=== PATIENT | female | born 1950 | race Caucasian/White ===

== ENCOUNTER → 2025-03-22 14:07 | Outpatient (REF) | payer MEDICARE, OTHER, SELFPAY | LOC: RAD 14:07 | PROVIDERS: ATTENDING PHYSICIAN Internal Medicine Hematology & Oncology; FAMILY PHYSICIAN Family Medicine | DX: I82.592 Chronic embolism and thrombosis of other specified deep vein of left lower extremity (principal); R53.83 Other fatigue; R79.89 Other specified abnormal findings of blood chemistry | CPT/HCPCS: 71260; 74177; Q9967 ==

== ENCOUNTER → 2025-04-08 10:23 | Outpatient (REF) | payer MEDICARE, OTHER, SELFPAY ==
[2025-04-08 12:15] LABS: INR 1.69; PT 20.1 Sec (11.4-14.6)
== END ==
LOC: RCS 10:23
PROVIDERS: ATTENDING PHYSICIAN Internal Medicine; FAMILY PHYSICIAN Family Medicine; OTHER PHYSICIAN Internal Medicine Hematology & Oncology
DX: I27.20 Pulmonary hypertension, unspecified (principal); I82.592 Chronic embolism and thrombosis of other specified deep vein of left lower extremity; R53.83 Other fatigue; R79.89 Other specified abnormal findings of blood chemistry; D64.9 Anemia, unspecified; D51.9 Vitamin B12 deficiency anemia, unspecified
CPT/HCPCS: 36415; 85610; 93306

== ENCOUNTER 2025-04-11 06:15 | Day surgery (SDC) | payer MEDICARE, OTHER, SELFPAY ==
[2025-04-11] VITALS (8 sets, daily range): BP systolic 84–160; BP diastolic 41–67; BMI 31.7
[2025-04-11] MEDS: VENTOLIN NEBULES 2.5 MG INH (13:03)
[2025-04-11] MEDS: NSS 500 IV (13:16)
== END 2025-04-11 16:28 | disposition home or self-care (01) ==
LOC: SDS 06:15
PROVIDERS: ATTENDING PHYSICIAN Internal Medicine Critical Care Medicine
DX: R91.8 Other nonspecific abnormal finding of lung field (principal); C34.11 Malignant neoplasm of upper lobe, right bronchus or lung
CPT/HCPCS: 31625; 31623; 31624; 31654; 71045; 76000; 81459; 88112; 88305; 88333; 88334; 88341; 88342; 94640

== ENCOUNTER → 2025-04-26 20:10 | Outpatient (REF) | payer MEDICARE, OTHER, SELFPAY | LOC: MRI 20:10 | PROVIDERS: ATTENDING PHYSICIAN Internal Medicine Hematology & Oncology; FAMILY PHYSICIAN Family Medicine | DX: I82.592 Chronic embolism and thrombosis of other specified deep vein of left lower extremity (principal); R53.83 Other fatigue; R79.89 Other specified abnormal findings of blood chemistry; D64.9 Anemia, unspecified; D51.9 Vitamin B12 deficiency anemia, unspecified | CPT/HCPCS: 70553; A9575 ==

== ENCOUNTER → 2025-05-06 11:03 | Outpatient (REF) | payer MEDICARE, OTHER, SELFPAY ==
[2025-05-06 11:23] LABS: Glucose 84 mg/dl (70-99)
== END ==
LOC: PET 11:03
PROVIDERS: ATTENDING PHYSICIAN Internal Medicine Hematology & Oncology
DX: C34.11 Malignant neoplasm of upper lobe, right bronchus or lung (principal); R53.83 Other fatigue; R79.89 Other specified abnormal findings of blood chemistry; D64.9 Anemia, unspecified; D51.9 Vitamin B12 deficiency anemia, unspecified; R91.8 Other nonspecific abnormal finding of lung field; I82.592 Chronic embolism and thrombosis of other specified deep vein of left lower extremity
CPT/HCPCS: 36415; 82947

== ENCOUNTER → 2025-05-23 08:22 | Outpatient (REF) | payer MEDICARE, OTHER, SELFPAY ==
[2025-05-23 08:45] VITALS: BP 149/66; BP_SYST 78; BMI 31.1
[2025-05-23] MEDS: ANCEF 10 IV (09:32)
[2025-05-23 09:37] LABS: INR 1.74; PT 20.5 Sec (11.4-14.6)
[2025-05-23 10:40] VITALS: BP 130/57; BP_SYST 71
[2025-05-23 10:55] VITALS: BP 106/71; BP_SYST 72
== END ==
LOC: RADI 08:22
PROVIDERS: Radiology Diagnostic Radiology; ATTENDING PHYSICIAN Internal Medicine Hematology & Oncology; FAMILY PHYSICIAN Family Medicine
DX: C34.11 Malignant neoplasm of upper lobe, right bronchus or lung (principal)
CPT/HCPCS: 36561; 76937; 77001; 85610; 99152; C1788

== ENCOUNTER → 2025-05-26 12:45 | Outpatient (REF) | payer MEDICARE, OTHER, SELFPAY ==
[2025-05-26 14:52] LABS: Blood Urea Nitrogen 42 mg/dl (7-17)
== END ==
LOC: REG 12:45
PROVIDERS: ATTENDING PHYSICIAN Radiology Radiation Oncology; FAMILY PHYSICIAN Family Medicine
DX: C34.11 Malignant neoplasm of upper lobe, right bronchus or lung (principal)
CPT/HCPCS: 36415; 82565; 84520

== ENCOUNTER → 2025-06-15 12:02 | Outpatient (REF) | payer MEDICARE, OTHER, SELFPAY | LOC: HWRCS 12:02 | PROVIDERS: ATTENDING PHYSICIAN Internal Medicine; FAMILY PHYSICIAN Family Medicine | DX: I10 Essential (primary) hypertension (principal); I26.99 Other pulmonary embolism without acute cor pulmonale; C34.90 Malignant neoplasm of unspecified part of unspecified bronchus or lung; R94.31 Abnormal electrocardiogram [ECG] [EKG]; I73.9 Peripheral vascular disease, unspecified; R00.2 Palpitations; I95.81 Postprocedural hypotension | CPT/HCPCS: 78452; 93017; A9500; J2785 ==

== ENCOUNTER 2025-07-23 16:47 | Inpatient (IN) | payer MEDICARE, OTHER, SELFPAY ==
[2025-07-23] VITALS (15 sets, daily range): BP systolic 96–151; BP diastolic 47–117; PULSE 71–120; BMI 27.4; BMI 28.0
--- NOTE | 2025-07-23 12:23 | ED.GENMED ---
History of Present Illness
<Shabnam Parra PA-C - Last Filed: 07/23/25 15:34>
General
Chief Complaint: Breathing Problem
Source: patient
Exam Limitations: none
Time Seen by Provider: 07/23/25 12:04
History of Present Illness
History of Present Illness:
75yoF with a history of lung cancer on chemotherapy, prior DVT/PE on Coumadin, and hypertension presenting for evaluation of fatigue. Patient finished her second round of chemotherapy 2 weeks ago. Symptoms started about 1 week ago. She reports
generalized weakness, malaise, and fatigue. She states she is unable to walk more than 10 feet without feeling very weak. She is also experiencing some upper abdominal cramping and is not eating much due to her abdominal pain. She has lost about
12 pounds in the past month. Additionally, she is having upper back pain and lightheadedness. She had a UTI several months ago and her urine odor has been very strong so she believes she has another UTI. Her INR was checked 3 days ago and was
elevated at 4.3 so she has not taken her Coumadin in the past few days. She denies any shortness of breath, pleuritic pain, chest pain, nausea, vomiting, diarrhea, hematochezia, melena, fevers. She follows with Dr. Whyte and next chemotherapy is
scheduled for 6 days from now.
Past History
<Shabnam Parra PA-C - Last Filed: 07/23/25 15:34>
Past History
ED Past Medical History: Other (DVT, hypertension)
Social History
Tobacco: Former smoker
Phy Exam
<Shabnam Parra PA-C - Last Filed: 07/23/25 15:34>
General Physical Exam
General Presentation: well appearing and no apparent distress
General Skin: warm and dry
General Habitus: normal
General Mental: alert
ENT Exam
ENT Exam: pharynx normal and normocephalic
Cardiovascular Exam
Cardiovascular Exam: regular rate/rhythm
Pulmonary Exam
Pulmonary Exam: lungs clear, no respiratory distress, no rales, no crackles, no rhonchi and no wheezing
Gastrointestinal Exam
Gastrointestinal Exam: non tender, soft, non distended and other (Umbilical hernia palpated that is non-tender without skin changes.)
Neurological Exam
Neurological Exam: alert
[place] Coma Scale
Eye Opening: Spontaneous
Verbal Response: Oriented
Motor Response: Obeys Commands
GCS Total Score: 15
Skin Exam
Skin Exam: normal color and warm/dry
Psychiatric Exam
Psychiatric Exam: normal mood/affect
<Lotus Ochoa MD - Last Filed: 07/23/25 14:33>
Lisa Coma Scale
GCS Total Score: 15
Scores
<Shabnam Parra PA-C - Last Filed: 07/23/25 15:34>
Heart Failure Risk
Heart Failure Risk Score: Not Applicable
Course
<Shabnam Parra PA-C - Last Filed: 07/23/25 15:34>
Orders/Labs/Results
Orders:
Orders
07/23/25 12:22
Electrocardiogram (*1) Urgent
Reason for Study: Fatigue / Weakness
EKG- Treatment ONCE
07/23/25 12:23
Cardiac Monitoring- Treatment ONCE
07/23/25 12:40
Complete Blood Count/With Diff Urgent
Comprehensive Metabolic Panel Urgent
Lipase Urgent
Prothrombin Time Urgent
TSH Reflex To Free T4 Urgent
Troponin I Urgent
Urine Culture Urgent
ANNY Source: U
Specimen Description:
Date Specimen was Collected: 07/23/25
Time Specimen was Collected: 12:30
07/23/25 13:26
CT Abd/pel Without Iv Or Oral Urgent
Comment:
Reason For Exam: upper abd pain
0.9% Sodium Chloride 500 ml [Nss] 500 ml IV BOLUS
07/23/25 13:33
Osmolality, Random Urine Urgent
Urine Sodium Urgent
07/23/25 14:43
Urinalysis Reflex To Culture Urgent
Date Specimen was Collected: 07/23/25
Time Specimen was Collected: 13:57
Urine Microscopic Reflex Cult Urgent
Urine Culture Urgent
ANNY Source: U
Specimen Description:
Date Specimen was Collected: 07/23/25
Time Specimen was Collected: 13:57
07/23/25 14:50
Warfarin [Coumadin] 5 mg PO NOW STA
07/23/25 14:54
Add On- LAB Routine
Tests Added?: serum osmolality
07/23/25 15:01
Add On- LAB Urgent
Tests Added?: urine chloride
Abnormal Lab Results
07/23/25 07/23/25
12:40 14:43
WBC 3.8 L 10^3/uL
(4.8-10.8)
RBC 3.24 L 10^6/uL
(4.20-5.40)
Hgb 9.1 L g/dL
(12.0-16.0)
Hct 26.9 L %
(37.0-47.0)
RDW 16.0 H %
(11.5-14.5)
Absolute Lymphs (auto) 0.6 L 10^3/uL
(1.2-3.4)
Absolute Monos (auto) 0.7 H 10^3/uL
(0.1-0.6)
Lymphocytes % 15.6 L %
(20.5-51.1)
Monocytes % 17.2 H %
(1.7-9.3)
PT 19.8 H Sec
(11.4-14.6)
Sodium 125 L mmol/L
(135-145)
Chloride 93 L mmol/L
(98-107)
BUN 31 H mg/dl
(7-17)
Creatinine 1.7 H mg/dL
(0.6-1.0)
Ur Occult Blood Reflex 2+ A
(Negative)
Urine Nitrite (Reflex) Positive A
(Negative)
Leukocyte Esterase Rfl 3+ A
(Negative)
Urine Albumin (Reflex) 2+ A
(Neg - Trace)
07/23/25 12:40
07/23/25 12:40
Vital Signs
Initial and Last Documented VS:
Initial Vital Signs
Temp Pulse Resp BP Pulse Ox
97.9 F 90 16 106/54 97
07/23/25 11:44 07/23/25 11:44 07/23/25 11:44 07/23/25 11:44 07/23/25 11:44
Last Documented Vital Signs
Temp Pulse Resp BP Pulse Ox
98.6 F 71 13 96/63 99
07/23/25 12:43 07/23/25 13:00 07/23/25 13:00 07/23/25 13:00 07/23/25 13:00
<Lotus Ochoa MD - Last Filed: 07/23/25 14:33>
Orders/Labs/Results
Orders:
Orders
07/23/25 12:22
Electrocardiogram (*1) Urgent
Reason for Study: Fatigue / Weakness
EKG- Treatment ONCE
07/23/25 12:23
Cardiac Monitoring- Treatment ONCE
07/23/25 12:40
Complete Blood Count/With Diff Urgent
Comprehensive Metabolic Panel Urgent
Lipase Urgent
Prothrombin Time Urgent
TSH Reflex To Free T4 Urgent
Troponin I Urgent
Urine Culture Urgent
ANNY Source: U
Specimen Description:
Date Specimen was Collected: 07/23/25
Time Specimen was Collected: 12:30
07/23/25 13:26
CT Abd/pel Without Iv Or Oral Urgent
Comment:
Reason For Exam: upper abd pain
0.9% Sodium Chloride 500 ml [Nss] 500 ml IV BOLUS
07/23/25 13:33
Osmolality, Random Urine Urgent
Urine Sodium Urgent
07/23/25 14:43
Urinalysis Reflex To Culture Urgent
Date Specimen was Collected: 07/23/25
Time Specimen was Collected: 13:57
Urine Microscopic Reflex Cult Urgent
Urine Culture Urgent
ANNY Source: U
Specimen Description:
Date Specimen was Collected: 07/23/25
Time Specimen was Collected: 13:57
07/23/25 14:50
Warfarin [Coumadin] 5 mg PO NOW STA
07/23/25 14:54
Add On- LAB Routine
Tests Added?: serum osmolality
07/23/25 15:01
Add On- LAB Urgent
Tests Added?: urine chloride
Abnormal Lab Results
07/23/25 07/23/25
12:40 14:43
WBC 3.8 L 10^3/uL
(4.8-10.8)
RBC 3.24 L 10^6/uL
(4.20-5.40)
Hgb 9.1 L g/dL
(12.0-16.0)
Hct 26.9 L %
(37.0-47.0)
RDW 16.0 H %
(11.5-14.5)
Absolute Lymphs (auto) 0.6 L 10^3/uL
(1.2-3.4)
Absolute Monos (auto) 0.7 H 10^3/uL
(0.1-0.6)
Lymphocytes % 15.6 L %
(20.5-51.1)
Monocytes % 17.2 H %
(1.7-9.3)
PT 19.8 H Sec
(11.4-14.6)
Sodium 125 L mmol/L
(135-145)
Chloride 93 L mmol/L
(98-107)
BUN 31 H mg/dl
(7-17)
Creatinine 1.7 H mg/dL
(0.6-1.0)
Ur Occult Blood Reflex 2+ A
(Negative)
Urine Nitrite (Reflex) Positive A
(Negative)
Leukocyte Esterase Rfl 3+ A
(Negative)
Urine Albumin (Reflex) 2+ A
(Neg - Trace)
07/23/25 12:40
07/23/25 12:40
Vital Signs
Initial and Last Documented VS:
Initial Vital Signs
Temp Pulse Resp BP Pulse Ox
97.9 F 90 16 106/54 97
07/23/25 11:44 07/23/25 11:44 07/23/25 11:44 07/23/25 11:44 07/23/25 11:44
Last Documented Vital Signs
Temp Pulse Resp BP Pulse Ox
98.6 F 71 13 96/63 99
07/23/25 12:43 07/23/25 13:00 07/23/25 13:00 07/23/25 13:00 07/23/25 13:00
Dashalt;Shabnam Parra PA-C - Last Filed: 07/23/25 15:34>
MDM/Problems Addressed
Differential Diagnosis Includes:
75yoF presenting with generalized weakness x 1 week. Also c/o upper abdominal pain that worsens after eating and mid back pain. Hx of lung cancer with last chemo treatment 2 weeks ago. VSS. Patient non-toxic appearing. Differential diagnosis
includes but is not limited to: weakness related to chemotherapy/underlying malignancy, symptomatic anemia, metastatic disease, PUD
Initial ED plan: Check cardiac labs, lipase, TSH, UA, EKG, and CT abdomen.
<Shabnam Parra PA-C - Last Filed: 07/23/25 15:34>
*Pulse Oximetry
SaO2: 97
Oxygen Mode of Delivery: Room air
Patient hypoxic: no
*EKG
Interpreted by ED Provider?: Yes
EKG Intrepretation Date: 07/23/25
Heart Rate: 75
Rate: normal
Rhythm: sinus
[place]: normal axis
Interval: normal interval
QRS Pattern: normal QRS
Ischemia: no ischemia
*Critical Care Note
Total Time (30-74mins, 75-104mins- exclusive of procedures): Not Applicable
<Shabnam Parra PA-C - Last Filed: 07/23/25 15:34>
Update Note
Update Note:
Hemoglobin 9.1. Patient able to show me her recent outpatient lab work results on her phone. Hemoglobin also 9.1 on 07/05/25. Sodium is 125 which appears new. Creatinine 1.7, up slightly from 1.46 on 07/08/15. CT shows findigns suggesting
interstitial pancreatitis although lipase levels WNL. Urine studies ordered as well as 500cc NS bolus. Patient admitted for further management.
ED Attending Note
<Shabnam Parra PA-C - Last Filed: 07/23/25 15:34>
-
Portions of this chart may have been created with voice recognition software.� Occasional wrong word or��sound alike� substitutions may have occurred due to the inherent limitations of voice recognition software.
<Lotus Ochoa MD - Last Filed: 07/23/25 14:33>
ED Attending Note
Patient seen and examined by attending physician: Yes
I performed the substantive portion of visit, reviewed & personally made and approve the management plan that is documented in note by myself or HIREN.: Yes
ED Attending Note:
Patient appears nontoxic. Breathing comfortably. Appears slightly pale. Abdomen is soft without rebound or guarding.
Discharge Plan
Departure
Patient Disposition: Admit
Date of Disposition: 07/23/25
Time of Disposition: 14:12
Presentation/result/management discussed w/ accepting MD/DO: Hospitalist
Discharge Problem:
Generalized weakness, Hyponatremia
Prescriptions:
No Action
cholecalciferol (vitamin D3) 1,000 UNIT capsule
1,000 unit PO QPM
lisinopril 20 mg Tablet
20 mg PO DAILY
warfarin 5 mg Tablet
5 mg PO DIRECTED
Rx Instructions:
take 5mg friday and 2.5mg friday at night hold and friday
albuterol sulfate 90 mcg/actuation Hfa Aerosol Inhaler
2 puff INHALATION R Q6HPRN PRN (Reason: sob)
Theragen Tablet
1 tab PO DAILY
Referrals:
UNKNOWN - PT NOT,INTERVIEWE [Family Provider]
Interventions
Interventions:
*Risk Screen - Suicide Last Done: 07/23/25 12:43
*General Assessment Last Done: 07/23/25 12:43
*Neglect/Abuse Screening Last Done: 07/23/25 12:43
*ED COVID-19 Vaccine History Last Done: 07/23/25 12:43
*ED Influenza Vaccine History Last Done: 07/23/25 12:43
[facility] Fall Risk Assessment Tool Last Done: 07/23/25 12:43
ED- Cardiac Assessment Last Done: 07/23/25 12:43
ED- Pulmonary Assessment Last Done: 07/23/25 12:43
Discharge Date and Time
Print Language: BELARUSIAN
[2025-07-23 12:57] LABS: Hematocrit 26.9 % (37.0-47.0); Hemoglobin 9.1 g/dL (12.0-16.0); Mean Corp Hgb Conc. 33.8 g/dL (33.0-37.0); Mean Corpuscular Volume 83.0 fL (81.0-99.0); Nucleated Red Blood Cells % 0 %; Platelet Count 157 10^3/uL (130-400); Red Cell Dist. Width 16.0 % (11.5-14.5)
[2025-07-23 13:03] LABS: INR 1.67; PT 19.8 Sec (11.4-14.6)
[2025-07-23 13:21] LABS: ALT (SGPT) 15 U/L (0-35); AST (SGOT) 22 U/L (14-36); Albumin 3.8 g/dl (3.5-5.0); Alkaline Phosphatase 97 U/L (38-126); Blood Urea Nitrogen 31 mg/dl (7-17); Calcium 10.1 mg/dl (8.4-10.2); Carbon Dioxide 26 mmol/L (22-30); Chloride 93 mmol/L (98-107); Estimated Creatinine Clearance 27 ml/min; Glucose 98 mg/dl (70-99); Lipase 166 U/L (23-300); Potassium 5.0 mmol/L (3.5-5.1); Sodium 125 mmol/L (135-145); Total Protein 6.8 g/dl (6.3-8.2); eGFR 30.70
[2025-07-23 13:32] LABS: Troponin I 0.017 ng/ml
[2025-07-23] MEDS: NSS 500 IV (14:17)
[2025-07-23 15:16] LABS: Urine Character Cloudy (Clear)
[2025-07-23 16:00] LABS: Urine White Cell >100 /HPF (0-5)
[2025-07-23] MEDS: COUMADIN 5 MG PO (16:15)
--- NOTE | 2025-07-23 16:33 | CM ---
Chart reviewed and spoke with patient at ED bedside
She is currently on chemo treatment for lung cancer. [facility] oncologist Dr. Trujillo told her ot come to ED today
Lives in [address] with 4 [address]
DME cane
Independent
Per patient Davy is not very supportive but her son Rico who lives a mile away is supportive
Rico phone number [phone]
Has a good friend Chivo who provides transportation if needed
PCP Dr. Sherley Platt
Pharmacy [facility]
no hx of VN nor SNF
DCP is to return home
next chemo is on 07/29
Family/friend can provide transportation at [place]
CM will continue to follow up for any dcp needs
--- NOTE | 2025-07-23 17:43 | HPS.HSE ---
Addendum entered and electronically signed by Radha Morales MD 07/23/25 19:35:
I personally performed a history and physical exam of the patient and discussed management with the resident. I reviewed the resident's note and agree with the documented findings and plan of care HPI/CC.
GENERAL: well developed, well nourished, female in no apparent distress
HEENT: NT/AC--no O2 requirements
HEART: regular rate and rhythm, +S1, +S2
LUNGS : clear to auscultation bilaterally
ABDOM: soft, nontender, nondistended, + bowel sounds
EXT: no cyanosis, clubbing-- 2+ edema bilateral LE--wearing compression stockings
NEUROLOGIC: grossly intact
Symptomatic hypovolemic hyponatremia exacerbated by polydipsia (pt drinking large water volumes to 'keep hydrated') along with poor oral intake from chemo--cont NSS and trend sodium--if no improvement, consult renal- Veronica 55, Urine Osm 390--fluid
restrict
UTI-- asymptomatic, uncomplicated--UA positive, culture pending--adding rocephin
Abdominal pain/nausea--Mild edema/peripancreatic inflammatory changes of the pancreatic head--do not believe pancreatitis with normal lipase--antiemetics
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 Whyte- Outpatient PT/INR elevated at 4.3, Coumadin held for several days prior to admission- INR on admission 1.67- Given x1 dose 5mg Warfarin this evening-- tend INR and dose warfarin
daily for now
SCC of the lung, stage IIIa--Follows with Dr. Whyte at [place] -- current chemo regimen includes Keytruda, Carboplatin, Taxol [id number] x4 cycles--consult heme
CKD stage IIIa--Baseline creatinine, creatinine May 2025 1.6- Creatinine admission 1.7, potential baseline, though ADEN on CKD not entirely ruled out given hypovolemic state- Hold nephrotoxic medication- IV fluids as above
Essential hypertension- Hypotensive on arrival, hypovolemic- Hold lisinopril for now
DVT proph-- Coumadin
CODE STATUS-- DNR
Original Note:
Family Physician
-
Family Physician: INTERVIEWE UNKNOWN - PT NOT
Chief Complaint
-
Weakness, dizziness, nausea
History of Present Illness
Susu is a 75-year-old female with a past medical history SCC recently diagnosed in March 2025 (follows with Dr. Whyte in [place]) currently undergoing chemotherapy, prior DVT/PE (on Coumadin), CKD stage IIIa, hypertension who came to the ED
after contacting [facility] emotional support teacher team for symptoms of weakness, dizziness, nausea, abdominal pain.
She recently started chemotherapy with Keytruda, carboplatin, Taxol on June 17 for stage IIIa SCC right lung. She tolerated the first round of chemo relatively well, however during her second cycle July 08 she began with worsening nausea
only few days after treatment. The nausea progressed to diffuse nonspecific abdominal pain that would come in waves, it was 4-5 out of 10 in intensity, not associated affected by eating. Due to the nausea and abdominal pain/discomfort she began
eating less, reporting an approximate 12 pound weight loss in the last few weeks. She was taking as needed antiemetics prescribed by oncologist. She also reports drinking greater than 64 ounces of water during this time she was not eating solid
food. Then, roughly 1 week ago she began having tiredness, dizziness, weakness, lightheadedness which was worse when standing or during activity, which she says is new from prior chemotherapy treatments. She denies any fevers, chills, diarrhea,
vomiting, chest pain, shortness of breath during this time. The symptoms progressed steadily over the last week prompting her to call the on-call service with [facility]. From there she was instructed to come to the ED for further
evaluation and management.
Also during this time, on outpatient labs her INR was found to be 4.3. Her Coumadin was stopped, and she has not taken it for the past several days, partially due to nausea. Her no symptoms of bruising or bleeding.
Chemistry on admission revealed incidental hyponatremia of 125 which the patient says is new. Creatinine was 1.7, baseline on chart review appears to be around 1.6-1.7, however unable to access recent lab work from outpatient EMR. CT abdomen
pelvis demonstrated findings concerning for acute interstitial pancreatitis and bibasilar bronchiolitis. Lipase was within normal limits. INR was found to be 1.67. In the ED she initially had stable blood pressures, however became hypotensive in
the 90s/60s and received x1 500 cc bolus of IV fluids. All other vital signs were stable. She is found to be leukopenic, anemic.
Medical History
Past Medical History
Past Medical History: Reports Cancer and HTN
Additional Past Medical History:
DVT/PE, CKD stage IIIa,
Past Surgical History: Reports (X 2)
Additional Past Surgical History:
Nephrectomy, removal of rectal mass (benign), Chemo-Port placement
Social History
Tobacco: Former Smoker (30 pack/year smoking history, quit 2006)
Alcohol: None
Drug: None
Family History
Family History: Not pertinent
Allergies / Home Medications
Allergies reflects when Allergies were last updated in [facility].
Home Medications with original date entered in [facility]
Allergy/Medication List:
Allergies
Allergy/AdvReac Type Severity Reaction Status Date / Time
naproxen Allergy Rash Verified 07/23/25 11:49
Home Medications
cholecalciferol (vitamin D3) 25 mcg (1,000 unit) capsule 1,000 unit PO QPM Supplement 12/06/13
lisinopril 20 mg tablet 20 mg PO DAILY Blood Pressure 05/19/25
warfarin 5 mg tablet 5 mg PO DIRECTED 05/19/25
albuterol sulfate 90 mcg/actuation aerosol inhaler 2 puff inhalation R Q6HPRN PRN sob 05/23/25
therapeutic multivitamin 1 tab PO DAILY Supplement 07/23/25
Review of Systems
-
History Source: Patient
A 12 point ROS was completed and negative except as noted: Yes
Constitutional: Reports Weight Loss and Fatigue; Denies Night Sweats or Chills
EENT: Reports No Symptoms
Respiratory: Reports No Symptoms
Cardiac: Reports No Symptoms
Abdomen/GI: Reports Abdominal Pain, Nausea and Anorexia; Denies Vomiting, Diarrhea, Constipated, Bloody Stools or Black Stools
: Reports No Symptoms
Musculoskeletal: Reports No Symptoms
Skin: Reports No Symptoms
Neurological: Reports No Symptoms
Endocrine: Reports No Symptoms
Hematologic/Lymphatic: Reports No Symptoms
Psych: Reports No Symptoms
Physical Exam
Vital Signs
Vital Signs
Temp Pulse Resp BP Pulse Ox
98.6 F 82 20 117/64 97
07/23/25 12:43 07/23/25 15:48 07/23/25 15:48 07/23/25 15:48 07/23/25 15:48
Physical Exam
General: Well Developed, Well Nourished, No Apparent Distress, Comfortable and Conversant
HEENT: NormoCephalic, Anicteric, Moist mucous membranes, PERRLA, [place] Conjunctivae, No Ptosis, Nose Appears Normal and Ears Appear Normal
Respiratory: Clear and Non Labored Respirations; No Wheezes, Rales or Rhonchi
Cardiac: S1/S2 and Regular Rhythm; No Murmur
GI: Soft, Non Distended, Normal Bowel Sounds and Tender (Mild diffuse tenderness, no guarding, no rigidity); No No Hernias (Palpable nonreducible hernia with active bowel sounds, no signs of incarceration)
Rectal: Deferred by Provider
Genito-urinary: Deferred by me
Musculoskeletal: No Clubbing, No Cyanosis and No Edema
Skin: Warm, Dry and IV/Catheter Site
Neuro: AO x 3 and Nonfocal/grossly intact
Psych: Calm and Intact Judgment/Insight
Laboratory Results
-
07/23/25 12:40
07/23/25 12:40
Laboratory Results
PT 19.8 Sec (11.4-14.6) H 07/23/25 12:40
INR 1.67 07/23/25 12:40
Total Bilirubin 0.3 mg/dl (0.2-1.3) 07/23/25 12:40
AST 22 U/L (14-36) 07/23/25 12:40
ALT 15 U/L (0-35) 07/23/25 12:40
Alkaline Phosphatase 97 U/L (38-126) 07/23/25 12:40
Troponin I 0.017 ng/ml 07/23/25 12:40
Lipase 166 U/L (23-300) 07/23/25 12:40
Impression/Plan
-
Susu is a 75-year-old female with a past medical history SCC recently diagnosed in March 2025 (follows with Dr. Whyte in [place]) currently undergoing chemotherapy, prior DVT/PE (on Coumadin), CKD stage IIIa, hypertension who came to the ED
after contacting [facility] [place] [facility] emotional support teacher team for symptoms of weakness, lightheadedness, dizziness, abdominal pain/nausea following second cycle of chemotherapy. He was found to be hyponatremic, incidental CT findings concerning for
pancreatitis.
## Symptomatic hypovolemic hyponatremia
## Psychogenic Polydipsia
Most likely secondary to poor po intake and increased free water intake
- Na 125 on admission, baseline seems to be wnl, no prior h/o hyponatremia
- Veronica 55, Urine Osm 390
- s/p 500cc NS bolus x1
- continue on IV NS 80cc/hr
- trend BMP
- fluid restriction to 50oz
#UTI, asymptomatic, uncomplicated
Patient without history of dysuria, polyuria, systemic signs
- UA demonstrating nitrate, leukocyte esterase, greater than 100 WBCs, many bacteria
- Reflex culture pending
- Start Ceftriaxone 1g IV q24
- If culture unconvincing, will DC antibiotics
# Abdominal pain/nausea
# Mild edema/peripancreatic inflammatory changes of the pancreatic head
Imaging findings concerning for possible pancreatitis, however lipase level within normal limits and abdominal exam unconvincing
- No clear correlation to chemotherapy agents as a possible cause
- No history of alcohol intake
- No evidence of gallstones, cholecystitis, choledocholithiasis
- Continue to monitor clinically
- Nausea may be secondary to chemotherapy -- prn zofran
- diet as tolerated
# History of DVT/PE
Home Coumadin dosing regimen managed by Dr. Whyte
- Outpatient PT/INR elevated at 4.3, Coumadin held for several days prior to admission
- INR on admission 1.67
- Given x1 dose 5mg Warfarin this evening
- tend INR and dose warfarin daily for now
# SCC of the lung, stage IIIa
Follows with Dr. Whyte at [place] -- current chemo regimen includes Keytruda, Carboplatin, Taxol [id number] x4 cycles
- currently on cycle 2, last dosed July 08
- has follow up cycle in on 07/29
- Heme/Onc consulted - will see tomorrow
- [facility] oncologist; chemotherapy seems unlikely to be the cause of pancreatitis/CT abdomen findings
#CKD stage IIIa
Baseline creatinine, creatinine May 2025 1.6
- Creatinine admission 1.7, potential baseline, though ADEN on CKD not entirely ruled out given hypovolemic state
- Hold nephrotoxic medication
- IV fluids as above
#Essential hypertension
- Hypotensive on arrival, hypovolemic
- Hold lisinopril for now
- Monitor BPs
DVT prophylaxis: Coumadin
CODE STATUS: DNR
[2025-07-23] MEDS: NSS 1000 IV (18:31)
[2025-07-23] MEDS: STERILE WATER FOR INJECTION 10 ML IV (18:36)
[2025-07-23] MEDS: VITAMIN D3 (cholecalciferol) 25 MCG PO (18:37)
[2025-07-23] MEDS: ROCEPHIN 1000 MG IV (18:37)
[2025-07-24] VITALS (8 sets, daily range): BP systolic 87–131; BP diastolic 46–80; PULSE 78–114
[2025-07-24] MEDS: NSS 1000 IV ×2 (05:04→17:31)
--- NOTE | 2025-07-24 10:12 | W.PN.HOSP.TC ---
Addendum entered and electronically signed by Radha Morales MD 07/24/25 14:46:
I saw and evaluated the patient independently. I reviewed and discussed the resident�s note and agree with findings and plan as documented by Dr. Ohara.
GENERAL: well developed, well nourished, female in no apparent distress
HEENT: NT/AC--no O2 requirements
HEART: regular rate and rhythm, +S1, +S2
LUNGS : clear to auscultation bilaterally
ABDOM: soft, nontender, nondistended, + bowel sounds
EXT: no cyanosis, clubbing-- 2+ edema bilateral LE--wearing compression stockings
NEUROLOGIC: grossly intact
Symptomatic hypovolemic hyponatremia exacerbated by polydipsia (pt drinking large water volumes to 'keep hydrated') along with poor oral intake from chemo (pt has positive orthostatics)--cont NSS and trend sodium (improved to130)---fluid restrict
E. coli UTI-- asymptomatic, uncomplicated--sensitivities pending--cont rocephin
Abdominal pain/nausea--Mild edema/peripancreatic inflammatory changes of the pancreatic head--do not believe pancreatitis with normal lipase--antiemetics
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 Whyte- Outpatient PT/INR elevated at 4.3, Coumadin held for several days prior to admission- INR on admission 1.67, 1.74-- 5mg Warfarin this evening-- trend INR and dose warfarin daily
for now
SCC of the lung, stage IIIa--Follows with Dr. Whyte at [facility] -- current chemo regimen includes Keytruda, Carboplatin, Taxol [id number] x4 cycles--apprec heme
CKD stage IIIa--Baseline creatinine, creatinine May 2025 1.6- Creatinine admission 1.7, potential baseline, though ADEN on CKD not entirely ruled out given hypovolemic state (creat down to 1.5)- Hold nephrotoxic medication- IV fluids as above
Essential hypertension- Hypotensive on arrival, hypovolemic- Hold lisinopril for now
DVT proph-- Coumadin
CODE STATUS-- DNR
Original Note:
Today's Communication/Plan
-
Orthostatic vital signs +
INR 1.74 this AM -- given 5mg Warfarin -- repeat tomorrow
na improving, c/w IVF
c/w Fluid restriction
Onc to see
UCx prelim + Ecoli -- c/w Abx
Assessment / Plan
Assessment / Plan
Susu is a 75-year-old female with a past medical history SCC recently diagnosed in March 2025 (follows with Dr. Whyte in [place]) currently undergoing chemotherapy, prior DVT/PE (on Coumadin), CKD stage IIIa, hypertension who came to the ED
after contacting [facility] team for symptoms of weakness, lightheadedness, dizziness, abdominal pain/nausea following second cycle of chemotherapy. He was found to be hyponatremic, incidental CT findings concerning for
pancreatitis.
## Symptomatic hypovolemic hyponatremia
## Psychogenic Polydipsia
# Orthostasis
Dizziness, Lightheadedness most likely secondary to poor po intake and increased free water intake
- Na 125 on admission, baseline seems to be wnl, no prior h/o hyponatremia
- Na improving
- Random cortisol wnl
- Veronica 55, Urine Osm 390
- s/p 500cc NS bolus x1
- Orthostatic vital signs positive x2
- will continue with IVF and monitor for resolution. If persistent, may need to consider compression vs. medication moving forward
- continue on IV NS 80cc/hr
- trend BMP
- fluid restriction to 50oz
#UTI, asymptomatic, uncomplicated
Patient without history of dysuria, polyuria, systemic signs
- UA demonstrating nitrate, leukocyte esterase, greater than 100 WBCs, many bacteria
- Reflex culture pending
- prelim showing >100k CFU E coli.
- continue Ceftriaxone 1g IV q24
- If culture unconvincing, will DC antibiotics
# Abdominal pain/nausea
# Mild edema/peripancreatic inflammatory changes of the pancreatic head
Imaging findings concerning for possible pancreatitis, however lipase level within normal limits and abdominal exam unconvincing
- No clear correlation to chemotherapy agents as a possible cause
- No history of alcohol intake
- No evidence of gallstones, cholecystitis, choledocholithiasis
- Continue to monitor clinically
- Nausea may be secondary to chemotherapy -- prn zofran
- diet as tolerated
# History of DVT/PE
Home Coumadin dosing regimen managed by Dr. Whyte
- Outpatient PT/INR elevated at 4.3, Coumadin held for several days prior to admission
- INR on admission 1.67
- Given x1 dose 5mg Warfarin this evening
- tend INR and dose warfarin daily for now
# SCC of the lung, stage IIIa
Follows with Dr. Whyte at [place] -- current chemo regimen includes Keytruda, Carboplatin, Taxol [id number] x4 cycles
- currently on cycle 2, last dosed July 08
- has follow up cycle in on 07/29
- Heme/Onc consulted - will see tomorrow
- TT oncologist; chemotherapy seems unlikely to be the cause of pancreatitis/CT abdomen findings
#CKD stage IIIa
Baseline creatinine, creatinine May 2025 1.6
- Creatinine admission 1.7, potential baseline, though ADEN on CKD not entirely ruled out given hypovolemic state
- Hold nephrotoxic medication
- IV fluids as above
#Essential hypertension
- Hypotensive on arrival, hypovolemic
- Hold lisinopril for now
- Monitor BPs
DVT prophylaxis: Coumadin
CODE STATUS: DNR
Anticipated Discharge: > 48 hours
Subjective/Interval History
-
Date of Service: July 24, 2025
no acute complaints. no overnight events. Orthostatic vital signs positive. remains on IVF. Awake, not nauseous, ordering breakfast this AM.
Objective Data
-
Labs:
Laboratory Results
07/24/25
09:14
WBC Pending
Hgb Pending
Hct Pending
Plt Count Pending
PT Pending
INR Pending
Sodium Pending
Potassium Pending
Chloride Pending
Carbon Dioxide Pending
BUN Pending
Creatinine Pending
Glucose Pending
Calcium Pending
Total Bilirubin Pending
AST Pending
ALT Pending
Alkaline Phosphatase Pending
Vital Signs:
Vital Signs
Temp Pulse Resp BP Pulse Ox
98.2 F 79 18 116/80 97
07/24/25 08:09 07/24/25 08:09 07/24/25 08:09 07/24/25 08:09 07/24/25 08:09
I&O
07/23/25 07/24/25 07/25/25
06:59 06:59 06:59
Intake Total 960 / 960
Balance 960 / 960
Review of Systems
-
History Source: Patient
All other systems: Reviewed and negative
Physical Exam
-
General: Well Developed, Well Nourished, No Apparent Distress and Comfortable
HEENT: Normocephalic, Atraumatic, Moist Mucous Membranes, Anicteric, [place] Conjunctivae, No Ptosis, PERRLA and Nose Appears Normal
Respiratory: Clear to Auscultation and Non Labored Respirations; Negative Wheezes, Rales or Rhonchi
Cardiac: Regular Rhythm and S1/S2; Negative Murmur
GI: Soft, Nontender, Nondistended and Normal Bowel Sounds; Negative No Hernias (supraumbilical hernia, stable)
Rectal: Deferred by Provider
Genito-urinary: No Costovertebral Tender
Musculoskeletal: No Clubbing, No Cyanosis and No Edema
Skin: Warm, Dry and IV Access / Catheter Site
Neuro: AO x 3 and Nonfocal/Grossly Intact
Psych: Calm
[2025-07-24 10:23] LABS: Hematocrit 26.4 % (37.0-47.0); Hemoglobin 8.7 g/dL (12.0-16.0); Mean Corp Hgb Conc. 33.0 g/dL (33.0-37.0); Mean Corpuscular Volume 84.3 fL (81.0-99.0); Platelet Count 146 10^3/uL (130-400); Red Cell Dist. Width 16.4 % (11.5-14.5)
[2025-07-24 10:29] LABS: INR 1.74; PT 20.5 Sec (11.4-14.6)
--- NOTE | 2025-07-24 11:01 | PTCARENOTE ---
Orthostatic BP taken, positive, see flowsheet. Placed in trendelenberg, BP recovered to 131/56.
[2025-07-24 11:24] LABS: ALT (SGPT) 12 U/L (0-35); AST (SGOT) 20 U/L (14-36); Albumin 3.4 g/dl (3.5-5.0); Alkaline Phosphatase 81 U/L (38-126); Blood Urea Nitrogen 26 mg/dl (7-17); Calcium 9.8 mg/dl (8.4-10.2); Carbon Dioxide 23 mmol/L (22-30); Chloride 99 mmol/L (98-107); Estimated Creatinine Clearance 34 ml/min; Glucose 75 mg/dl (70-99); Potassium 5.0 mmol/L (3.5-5.1); Sodium 130 mmol/L (135-145); Total Protein 6.2 g/dl (6.3-8.2); eGFR 35.67
[2025-07-24 11:41] LABS: Cortisol, Random 19.9 ug/dl
--- NOTE | 2025-07-24 14:12 | CON.ONC ---
Consultation
-
Date Consultation Requested: 07/23/25
Date Consultation Performed: 07/24/25
Requesting Provider: Dr. Ohara
Performing Provider: Dr. Trujillo
Reason for Consultation: lung cancer
Impression
Impression
fatigue/lethargy
dehydration
hyponatremia
CKD
UTI
anemia- multifactorial - chemotherapy/ malignancy - CKD
NSCLC - stage III - Dr. Whyte - s/p 2 cycles - carbo/taxol/ keytruda - last 07/08
Plan
Plan
1. Dehydration/ fatigue/ hyponatremia
-receiving IVF support
-follow electrolytes and replete prn
-PT/OT eval
2. UTI
-ecoli - sensitvities pending
-ceftriaxone as per primary service
3. Anemia - multifactorial - chemotherapy/ anemia - CKD
-follow CBC
3. Stage III NSCLC -
-f/u w/ Dr. Whyte as outpt for continued management
Will continue to follow with you.
Patient History
History of Present Illness
75y/o female seen in oncology consultation today regarding stage III NSCLC.
The patient has been under the care of Dr. Whyte and is currently being treated w/ carboplatin/ paclitaxel and keytruda. She is s/p 2 cycles - last 07/08.
She presented to the [facility] ER yesterday w/ progressive increased fatigue and lethragy for the past week. She noted decreased appetite and about 12lb weight loss. Labs in the ER revealed hyponatremia w/ Na 125. Creatinine was mildly elevated
from baseline at 1.7, indicating dehydration. She has been started on IVF, w/ improvement in Na today to 130 and creatinine 1.5. UA was also positive, w/ urine culture revealing e-coli, she has been placed on antibiotics for UTI. CBC also revealed
anemia - hemoglobin 9.1g/dl
Clinically, she feels better. She denies SOB, chest pain, or palpitations. She remains weak. She denies pain. No nausea or vomiting. She notes tolerating PO this am.
Past-Medical/Surgical History
PMH:
stage III NSCLC - squamous cell - Dr. Whyte - carbo/taxol/ keytruda - s/p 2 cycles last 07/08
DVT/PE
CKD stage IIIa
PSH:
(X 2)
nephrectomy
removal of rectal mass (benign)
chemo-Port placement
Social History
Tobacco: Former Smoker (30 pack/year smoking history, quit 2006)
Alcohol: None
Family History
Family History: Not pertinent
Allergies: Naproxen
Patient Medication
�Medication �Instructions �Recorded �Confirmed �Last Taken �Type
cholecalciferol (vitamin D3) 25 1,000 unit PO QPM Supplement 12/06/13 07/23/25 07/22/25 History
mcg (1,000 unit) capsule
lisinopril 20 mg tablet 20 mg PO DAILY Blood Pressure 05/19/25 07/23/25 07/23/25 History
warfarin 5 mg tablet 5 mg PO DIRECTED 05/19/25 07/23/25 07/20/25 History
albuterol sulfate 90 mcg/actuation 2 puff inhalation R Q6HPRN PRN sob 05/23/25 07/23/25 Unknown History
aerosol inhaler
therapeutic multivitamin 1 tab PO DAILY Supplement 07/23/25 07/23/25 07/23/25 History
Active Medications
Generic Name Dose Route Start Last Admin
Trade Name Freq PRN Reason Stop Dose Admin
Albuterol 2 puff 07/23/25 18:01
Albuterol Hfa [90 Mcg/Dose] Inhaler INH
R Q6HPRN PRN
sob
Protocol
Ceftriaxone Sodium 1,000 mg 07/24/25 17:00
Ceftriaxone 1000 Mg / 10 Ml Vial IV
Q24H SERGEI
Cholecalciferol 25 mcg 07/23/25 18:01 07/23/25 18:37
Cholecalciferol (Vitamin D3) 25 Mcg Tablet (1,000 Units) PO 08/20/25 18:00 25 mcg
QPM SERGEI Administration
Sodium Chloride 1,000 mls @ 80 mls/hr 07/23/25 17:15 07/24/25 05:04
Nss IV 1,000 mls
.[id number] SERGEI Administration
Ondansetron HCl 4 mg 07/23/25 18:12
Ondansetron 4 Mg/2 Ml Vial IV 08/20/25 18:11
Q6HPRN PRN
NAUSEA/VOMITING
Sodium Chloride 0 flush 07/24/25 11:00
Sodium Chloride 0.9% (Flush) Syringe IV 08/21/25 10:59
PER PROTOCOL SERGEI
Sterile Water 10 ml 07/23/25 17:00 07/23/25 18:36
Sterile Water For Injection 10 Ml Vial IV 08/20/25 16:59 10 ml
Q24H SERGEI Administration
Warfarin Sodium 5 mg 07/24/25 18:00
Warfarin 5 Mg Tablet PO 07/24/25 18:01
ONCE@1800 ONE
Review of Systems
-
A ROS was performed w/ pertinent findings as per HPI.
Physical Exam
-
General: Well Developed and No Apparent Distress
HEENT: Negative Jaundice
Cardiology: Normal Sinus Rhythm
Pulmonary: Clear
Extremities: No C/C/E
Neurology: Non Focal
Labs
Lab Results
WBC 3.8 10^3/uL (4.8-10.8) L 07/24/25 09:14
RBC 3.13 10^6/uL (4.20-5.40) L 07/24/25 09:14
Hgb 8.7 g/dL (12.0-16.0) L 07/24/25 09:14
Hct 26.4 % (37.0-47.0) L 07/24/25 09:14
MCV 84.3 fL (81.0-99.0) 07/24/25 09:14
MCH 27.8 pg (27.0-31.0) 07/24/25 09:14
MCHC 33.0 g/dL (33.0-37.0) 07/24/25 09:14
RDW 16.4 % (11.5-14.5) H 07/24/25 09:14
Plt Count 146 10^3/uL (130-400) 07/24/25 09:14
MPV 9.4 fL (7.4-10.4) 07/24/25 09:14
Abs Immat Gran (auto) 0.0 10^3/uL (0-0.05) 07/23/25 12:40
Absolute Neuts (auto) 2.5 10^3/uL (1.4-6.5) 07/23/25 12:40
Absolute Lymphs (auto) 0.6 10^3/uL (1.2-3.4) L 07/23/25 12:40
Absolute Monos (auto) 0.7 10^3/uL (0.1-0.6) H 07/23/25 12:40
Absolute Eos (auto) 0.0 10^3/uL (0-0.7) 07/23/25 12:40
Absolute Basos (auto) 0.0 10^3/uL (0-0.2) 07/23/25 12:40
Immature Gran % 0.3 % (0-0.5) 07/23/25 12:40
Neutrophils % 65.6 % (42.2-75.2) 07/23/25 12:40
Lymphocytes % 15.6 % (20.5-51.1) L 07/23/25 12:40
Monocytes % 17.2 % (1.7-9.3) H 07/23/25 12:40
Eosinophils % 0.5 % (0-6) 07/23/25 12:40
Basophils % 0.8 % (0-2) 07/23/25 12:40
Creatinine 1.5 mg/dL (0.6-1.0) H 07/24/25 09:14
Vital Signs
Vital Signs
Temp Pulse Resp BP Pulse Ox
98.4 F 86 20 131/56 95
07/24/25 11:00 07/24/25 11:00 07/24/25 11:00 07/24/25 11:00 07/24/25 11:00
[2025-07-24] MEDS: STERILE WATER FOR INJECTION 10 ML IV (17:29)
[2025-07-24] MEDS: ROCEPHIN 1000 MG IV (17:29)
[2025-07-24] MEDS: COUMADIN 5 MG PO (17:31)
[2025-07-24] MEDS: VITAMIN D3 (cholecalciferol) 25 MCG PO (17:31)
[2025-07-25] VITALS (8 sets, daily range): BP systolic 106–164; BP diastolic 55–83; PULSE 76–109; BMI 28.5
[2025-07-25] MEDS: NSS 1000 IV ×2 (03:46→16:36)
--- NOTE | 2025-07-25 08:51 | W.PN.ONC2 ---
Today's Communication / Plan
-
.
Impression
Impression
fatigue/lethargy
dehydration
hyponatremia
CKD
UTI
anemia- multifactorial - chemotherapy/ malignancy - CKD
NSCLC - stage III - Dr. Whyte - s/p 2 cycles - carbo/taxol/ keytruda - last 07/08
Plan
Plan
1. Dehydration/ fatigue/ hyponatremia
-receiving IVF support
-follow electrolytes and replete prn
-PT/OT eval
2. UTI -Ecoli-ceftriaxone as per primary service
3. Anemia - multifactorial - chemotherapy/ anemia - CKD
-follow CBC
-monitor for bleeding
3. Stage III NSCLC -
-s/p C2 carbo/taxol/pembro 07/08, no GCSF -due for C3 07/28 -will reschedule if needed for hospital recovery
-monitor for immune mediated toxicities
-f/u w/ Dr. Whyte as outpt for continued management
4. DVT/PE�2006�and�2013 -historically on warfarin, however, would benefit to transition to DOAC with malignancy discussed with pt, she is agreeable if affordable.
5. Mild edema/peripancreatic inflammatory changes of the pancreatic head-nml lipase -management per primary service
-antiemetics prn
Subjective/Objective
Subjective
afebrile, no hypoxia or hypotension
worsening abdominal pain pain after eating
denies SOB, chest pain, or palpitations.
remains weak.
No nausea or vomiting, tolerating PO this am
Vital Signs:
Vital Signs
Temp Pulse Resp BP Pulse Ox
98.3 F 75 16 119/59 95
07/25/25 08:41 07/25/25 08:41 07/25/25 08:41 07/25/25 08:41 07/25/25 08:41
Lab Results:
Laboratory Data
WBC 3.8 10^3/uL (4.8-10.8) L 07/24/25 09:14
Hgb 8.7 g/dL (12.0-16.0) L 07/24/25 09:14
Plt Count 146 10^3/uL (130-400) 07/24/25 09:14
PT 20.5 Sec (11.4-14.6) H 07/24/25 09:14
INR 1.74 07/24/25 09:14
eGFR 35.67 07/24/25 09:14
Physical Exam
General: Well Developed and No Apparent Distress
HEENT: Negative Jaundice
Cardiology: Normal Sinus Rhythm
Pulmonary: Clear
Extremities: No C/C/E
Neurology: Non Focal
[2025-07-25 09:03] LABS: Hematocrit 23.0 % (37.0-47.0); Hemoglobin 7.5 g/dL (12.0-16.0); Mean Corp Hgb Conc. 32.6 g/dL (33.0-37.0); Mean Corpuscular Volume 85.5 fL (81.0-99.0); Platelet Count 123 10^3/uL (130-400); Red Cell Dist. Width 16.5 % (11.5-14.5)
[2025-07-25 09:12] LABS: INR 1.77; PT 20.7 Sec (11.4-14.6)
[2025-07-25 09:46] LABS: ALT (SGPT) 10 U/L (0-35); AST (SGOT) 17 U/L (14-36); Albumin 2.9 g/dl (3.5-5.0); Alkaline Phosphatase 76 U/L (38-126); Blood Urea Nitrogen 22 mg/dl (7-17); Calcium 9.2 mg/dl (8.4-10.2); Carbon Dioxide 25 mmol/L (22-30); Chloride 106 mmol/L (98-107); Estimated Creatinine Clearance 43 ml/min; Glucose 85 mg/dl (70-99); Potassium 4.7 mmol/L (3.5-5.1); Sodium 133 mmol/L (135-145); Total Protein 5.6 g/dl (6.3-8.2); eGFR 46.62
[2025-07-25 10:08] LABS: Reticulocyte Count 2.1 % (0.4-2.8)
[2025-07-25] MEDS: MYLICON 80 MG PO (10:14)
--- NOTE | 2025-07-25 12:24 | W.PN.HOSP.TC ---
Today's Communication/Plan
-
Continue with IV ceftriaxone day 3
Will give 5 mg warfarin this evening for INR 1.77
Sodium improving, continue with IV fluids -- BMP tomorrow
Check orthostatic vitals, may start midodrine 2.5 mg 3 times daily
Assessment / Plan
Assessment / Plan
Susu is a 75-year-old female with a past medical history SCC recently diagnosed in March 2025 (follows with Dr. Whyte in [place]) currently undergoing chemotherapy, prior DVT/PE (on Coumadin), CKD stage IIIa, hypertension who came to the ED
after contacting [place] [facility] change control coordinator team for symptoms of weakness, lightheadedness, dizziness, abdominal pain/nausea following second cycle of chemotherapy. He was found to be hyponatremic, incidental CT findings concerning for
pancreatitis.
## Symptomatic hypovolemic hyponatremia
## Psychogenic Polydipsia
# Orthostasis
Dizziness, Lightheadedness most likely secondary to poor po intake and increased free water intake
- Na 125 on admission, baseline seems to be wnl, no prior h/o hyponatremia
- Na improving
- Random cortisol wnl
- Veronica 55, Urine Osm 390
- s/p 500cc NS bolus x1
- Orthostatic vital signs positive
- will continue with IVF and monitor for resolution. If persistent, may need to consider compression vs. medication moving forward
- Patient minimally symptomatic at this time
- Will check orthostatic vitals in the afternoon today, may start low-dose midodrine 2.5 mg 3 times daily
- continue on IV NS 80cc/hr
- trend BMP
- Continue with fluid restriction to 50oz
#UTI, asymptomatic, uncomplicated
Patient without history of dysuria, polyuria, systemic signs
- UA demonstrating nitrate, leukocyte esterase, greater than 100 WBCs, many bacteria
- Reflex culture positive showing>100k CFU E coli., Pansensitive
- Continue with ceftriaxone 1g IV q24, day 3 -- d/c after today
# Abdominal pain/nausea
# Mild edema/peripancreatic inflammatory changes of the pancreatic head
Imaging findings concerning for possible pancreatitis, however lipase level within normal limits and abdominal exam unconvincing
- No clear correlation to chemotherapy agents as a possible cause
- No history of alcohol intake
- No evidence of gallstones, cholecystitis, choledocholithiasis
- Continue to monitor clinically
- Nausea may be secondary to chemotherapy -- prn zofran
- diet as tolerated
- prn Tums, simethicone
# History of DVT/PE
Home Coumadin dosing regimen managed by Dr. Whyte
- Outpatient PT/INR elevated at 4.3, Coumadin held for several days prior to admission
- Daily INR
- 1.6 - 1.74 - 1.77
- dosing 5mg warfarin x3 so far -- may need more moving forward
- trend INR and dose warfarin daily for now
# SCC of the lung, stage IIIa
Follows with Dr. Whyte at [place] -- current chemo regimen includes Keytruda, Carboplatin, Taxol [id number] x4 cycles
- currently on cycle 2, last dosed July 08
- has follow up cycle in on 07/29
- Heme/Onc following
- TT oncologist; chemotherapy seems unlikely to be the cause of pancreatitis/CT abdomen findings
#CKD stage IIIa
Baseline creatinine, creatinine May 2025 1.6
- Creatinine admission 1.7, potential baseline, though ADEN on CKD not entirely ruled out given hypovolemic state
- Hold nephrotoxic medication
- IV fluids as above
#Essential hypertension
- Hypotensive on arrival, hypovolemic
- Hold lisinopril for now
- Monitor BPs
DVT prophylaxis: Coumadin
CODE STATUS: DNR
Anticipated Discharge: 24 - 48 hours
Subjective/Interval History
-
Date of Service: July 25, 2025
No acute events overnight. Patient complaining of some mild gaseous discomfort in the abdomen, no nausea, no vomiting, no diarrhea. Orthostatic vitals from yesterday evening still positive, though patient reports minimal to no symptoms related to
orthostasis at this time.
Objective Data
-
Labs:
Laboratory Results
07/25/25
07:59
WBC 3.7 L
Hgb 7.5 L
Hct 23.0 L
Plt Count 123 L
PT 20.7 H
INR 1.77
Sodium 133 L
Potassium 4.7
Chloride 106
Carbon Dioxide 25
BUN 22 H
Creatinine 1.2 H
Glucose 85
Calcium 9.2
Total Bilirubin 0.2
AST 17
ALT 10
Alkaline Phosphatase 76
Vital Signs:
Vital Signs
Temp Pulse Resp BP Pulse Ox
98.3 F 75 16 119/59 95
07/25/25 08:41 07/25/25 08:41 07/25/25 08:41 07/25/25 08:41 07/25/25 08:41
I&O
07/24/25 07/25/25 07/26/25
06:59 06:59 06:59
Intake Total 960 / 960 1879 / 0
Balance 960 / 960 1879 / 1879
Review of Systems
-
History Source: Patient
All other systems: Reviewed and negative
Constitutional: Reports No Symptoms
EENT: Reports No Symptoms Reported
Respiratory: Reports No Symptoms
Cardiac: Reports No Symptoms
Abdomen/GI: Reports Other (Gaseous discomfort); Denies Abdominal Pain, Nausea, Vomiting, Diarrhea or Anorexia
Genitourinary: Reports No Symptoms
Musculoskeletal: Reports No Symptoms
Skin: Reports No Symptoms
Neuro: Reports No Symptoms
Hematologic / Lymphatic: Reports No Symptoms
Physical Exam
-
General: Well Developed, Well Nourished, No Apparent Distress and Comfortable
HEENT: Normocephalic, Atraumatic, Moist Mucous Membranes, Anicteric, [place] Conjunctivae, No Ptosis, PERRLA, Nose Appears Normal and Ears Appear Normal
Respiratory: Clear to Auscultation and Non Labored Respirations; Negative Wheezes, Rales or Rhonchi
Cardiac: Regular Rhythm and S1/S2; Negative Murmur or Rub
GI: Soft, Nontender, Nondistended and Normal Bowel Sounds; Negative No Hernias ([place] colonic hernia; stable, nontender)
Rectal: Deferred by Provider
Genito-urinary: No Costovertebral Tender
Musculoskeletal: No Clubbing, No Cyanosis and No Edema
Skin: Warm, Dry and IV Access / Catheter Site
Neuro: AO x 3 and Nonfocal/Grossly Intact
Psych: Calm and Intact Judgement/Insight
[2025-07-25 12:59] LABS: Ferritin 520.0 ng/ml (11.1-264.0)
[2025-07-25 13:29] LABS: Folate 6.9 ng/ml (2.76-20); Vitamin B12 788 pg/ml (239-931)
--- NOTE | 2025-07-25 14:42 | CM ---
E-Coli UTI, IV/Rocephin, Lung CA, chemo. Discharge POC: Anticipate discharge to home with no needs. Check for need for VN.
[2025-07-25] MEDS: MIRALAX 17 GRAMS PO (16:42)
[2025-07-25] MEDS: STERILE WATER FOR INJECTION 10 ML IV (16:42)
[2025-07-25] MEDS: ROCEPHIN 1000 MG IV (16:42)
[2025-07-25] MEDS: COUMADIN 5 MG PO (18:09)
[2025-07-25] MEDS: VITAMIN D3 (cholecalciferol) 25 MCG PO (18:09)
[2025-07-25] MEDS: TUMS CHEWABLE TABLET 200 MG PO (18:15)
[2025-07-26] VITALS (8 sets, daily range): BP systolic 113–151; BP diastolic 54–73; PULSE 74–79; O2SAT 97; BMI 28.9
[2025-07-26] MEDS: ROXICODONE 2.5 MG PO (03:02)
[2025-07-26] MEDS: NSS 1000 IV ×2 (05:09→16:38)
[2025-07-26 08:03] LABS: Hematocrit 25.3 % (37.0-47.0); Hemoglobin 8.1 g/dL (12.0-16.0); Mean Corp Hgb Conc. 32.0 g/dL (33.0-37.0); Mean Corpuscular Volume 86.6 fL (81.0-99.0); Platelet Count 131 10^3/uL (130-400); Red Cell Dist. Width 16.6 % (11.5-14.5)
[2025-07-26 08:06] LABS: INR 1.76; PT 20.7 Sec (11.4-14.6)
[2025-07-26 08:08] LABS: ALT (SGPT) 11 U/L (0-35); AST (SGOT) 19 U/L (14-36); Albumin 3.1 g/dl (3.5-5.0); Alkaline Phosphatase 72 U/L (38-126); Blood Urea Nitrogen 17 mg/dl (7-17); Calcium 9.8 mg/dl (8.4-10.2); Carbon Dioxide 25 mmol/L (22-30); Chloride 106 mmol/L (98-107); Estimated Creatinine Clearance 44 ml/min; Glucose 79 mg/dl (70-99); Potassium 4.8 mmol/L (3.5-5.1); Sodium 133 mmol/L (135-145); Total Protein 5.9 g/dl (6.3-8.2); eGFR 46.62
[2025-07-26] MEDS: MIRALAX 17 GRAMS PO (09:07)
--- NOTE | 2025-07-26 09:41 | W.PN.HOSP.TC ---
Today's Communication/Plan
-
7 mg warfarin this evening
DC IV antibiotic
Continue with IV fluid
Low residue diet, bowel regimen
PT OT eval
Case management to [facility]
Assessment / Plan
Assessment / Plan
Susu is a 75-year-old female with a past medical history SCC recently diagnosed in March 2025 (follows with Dr. 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
after contacting [place] [facility] conductor and engineer team for symptoms of weakness, lightheadedness, dizziness, abdominal pain/nausea following second cycle of chemotherapy. He was found to be hyponatremic, incidental CT findings concerning for
pancreatitis.
## Symptomatic hypovolemic hyponatremia
## Psychogenic Polydipsia
# Orthostasis
# Deconditioning
Dizziness, Lightheadedness most likely secondary to poor po intake and increased free water intake. Likely contributory element of deconditioning secondary to the hospital stay and chemotherapy
- Random cortisol wnl
- Veronica 55, Urine Osm 390
- s/p 500cc NS bolus x1
- Na 125 on admission, baseline seems to be wnl, no prior h/o hyponatremia
- Na improving
- Orthostatic vital signs positive
- will continue with IVF and monitor for resolution. If persistent, may need to consider compression vs. medication moving forward
- Patient minimally symptomatic at this time
- Remains orthostatic positive, however symptoms are improving -- will hold off on midodrine for now
- continue on IV NS 80cc/hr
- trend BMP
- Continue with fluid restriction to 50oz
- PT OT eval
#UTI, asymptomatic, uncomplicated
Patient without history of dysuria, polyuria, systemic signs
- UA demonstrating nitrate, leukocyte esterase, greater than 100 WBCs, many bacteria
- Reflex culture positive showing>100k CFU E coli., Pansensitive
- Completed ceftriaxone 3-day course
# Abdominal pain/nausea
# Mild edema/peripancreatic inflammatory changes of the pancreatic head
# Supraumbilical colonic hernia, prior to admission
Imaging findings concerning for possible pancreatitis, however lipase level within normal limits and abdominal exam unconvincing. Patient with known supraumbilical colonic hernia, plans as outpatient for surgical correction however interrupted by
recent diagnosis of lung cancer.
- No clear correlation to chemotherapy agents as a possible cause of pancreatitis
- No history of alcohol intake
- No evidence of gallstones, cholecystitis, choledocholithiasis
- Nausea may be secondary to chemotherapy -- prn zofran
- prn Tums, simethicone
- Will opt for a low residue diet and bowel regimen in an effort to reduce colicky abdominal pain most likely worsened by stool transit through herniated colon
- opioid pain medication with caution as it can worsen constipation and exacerbate abdominal pain
# History of DVT/PE
Home Coumadin dosing regimen managed by Dr. Whyte
- Outpatient PT/INR elevated at 4.3, Coumadin held for several days prior to admission
- Daily INR
- 1.6 - 1.74 - 1.77 - 1.76
- dosing 5mg warfarin x3 so far -- will give 7 mg warfarin this evening
- May benefit from Eliquis/Xarelto over Coumadin -- case management to [facility]
- trend INR and dose warfarin daily for now
# SCC of the lung, stage IIIa
Follows with Dr. Whyte at [place] -- current chemo regimen includes Keytruda, Carboplatin, Taxol [id number] x4 cycles
- currently on cycle 2, last dosed July 08
- has follow up cycle in on 07/29
- Heme/Onc following
- TT oncologist; chemotherapy seems unlikely to be the cause of pancreatitis/CT abdomen findings
#CKD stage IIIa
Baseline creatinine, creatinine May 2025 1.6
- Creatinine admission 1.7, potential baseline, though ADEN on CKD not entirely ruled out given hypovolemic state
- Hold nephrotoxic medication
- IV fluids as above
#Essential hypertension
- Hypotensive on arrival, hypovolemic
- Hold lisinopril for now
- Monitor BPs
DVT prophylaxis: Coumadin
CODE STATUS: DNR
Anticipated Discharge: 24 - 48 hours
Subjective/Interval History
-
Date of Service: July 26, 2025
Quality abdominal pain, worse at night, received 2.5 mg oxycodone x 1 dose with improvement in pain. Able to ambulate to the bathroom with no lightheadedness or dizziness, does report some mild weakness.
Objective Data
-
Labs:
Laboratory Results
07/26/25
06:33
WBC 3.7 L
Hgb 8.1 L
Hct 25.3 L
Plt Count 131
PT 20.7 H
INR 1.76
Sodium 133 L
Potassium 4.8
Chloride 106
Carbon Dioxide 25
BUN 17
Creatinine 1.2 H
Glucose 79
Calcium 9.8
Total Bilirubin 0.3
AST 19
ALT 11
Alkaline Phosphatase 72
Vital Signs:
Vital Signs
Temp Pulse Resp BP Pulse Ox
98.1 F 63 16 137/59 96
07/26/25 07:25 07/26/25 07:25 07/26/25 07:25 07/26/25 07:25 07/26/25 07:25
I&O
07/25/25 07/26/25 07/27/25
06:59 06:59 06:59
Intake Total 1879 420 / 420
Balance 1879 420 / 420
Review of Systems
-
History Source: Patient
All other systems: Reviewed and negative
Constitutional: Reports Fatigue; Denies Fever, Weight Loss or Night Sweats
EENT: Reports No Symptoms Reported
Respiratory: Reports No Symptoms
Cardiac: Reports No Symptoms
Abdomen/GI: Reports Abdominal Pain; Denies Nausea, Vomiting, Diarrhea or Constipated
Genitourinary: Reports No Symptoms
Musculoskeletal: Reports No Symptoms
Skin: Reports No Symptoms
Neuro: Reports No Symptoms
Endocrine: Reports No Symptoms
Hematologic / Lymphatic: Reports No Symptoms
Allergy / Immunology: Reports No Symptoms
Physical Exam
-
General: Well Developed, Well Nourished, No Apparent Distress and Comfortable
HEENT: Normocephalic, Atraumatic, Moist Mucous Membranes, Anicteric, [place] Conjunctivae, PERRLA, Nose Appears Normal and Ears Appear Normal
Respiratory: Clear to Auscultation and Non Labored Respirations; Negative Wheezes, Rales or Rhonchi
Cardiac: Regular Rhythm and S1/S2; Negative Murmur or Rub
GI: Soft, Nontender, Nondistended and Normal Bowel Sounds; Negative No Hernias (Supraumbilical colonic hernia, bowel sounds present, no signs of incarceration.)
Genito-urinary: No Costovertebral Tender
Musculoskeletal: No Clubbing, No Cyanosis and No Edema
Skin: Warm, Dry and IV Access / Catheter Site
Neuro: AO x 3 and Nonfocal/Grossly Intact
--- NOTE | 2025-07-26 12:38 | W.PN.ONC ---
Today's Communication / Plan
-
As per above plan. She is slowly improving. Unclear at this point when she may resume chemotherapy. She should ideally be managed on Eliquis, but says she cannot afford it. Her is on some sort of assistance from the drug company so that
he can afford it. I am not certain if social work is looking into this.
Impression
Impression
fatigue/lethargy
dehydration
hyponatremia
CKD
UTI
anemia- multifactorial - chemotherapy/ malignancy - CKD
NSCLC - stage III - Dr. Whyet - s/p 2 cycles - carbo/taxol/ keytruda - last 07/08
Plan
Plan
1. Dehydration/ fatigue/ hyponatremia
-receiving IVF support
-follow electrolytes and replete prn
-PT/OT eval
2. UTI -Ecoli-ceftriaxone as per primary service
3. Anemia - multifactorial - chemotherapy/ anemia - CKD
-follow CBC
-monitor for bleeding
3. Stage III NSCLC -
-s/p C2 carbo/taxol/pembro 07/08, no GCSF -due for C3 07/28 -will reschedule if needed for hospital recovery
-monitor for immune mediated toxicities
-f/u w/ Dr. Whyte as outpt for continued management
4. DVT/PE�2006�and�2013 -historically on warfarin, however, would benefit to transition to DOAC with malignancy discussed with pt, she is agreeable if affordable.
5. Mild edema/peripancreatic inflammatory changes of the pancreatic head-nml lipase -management per primary service
-antiemetics prn
Subjective/Objective
Subjective/Objective
She is feeling a little better. She has some minimal abdominal pain from her hernia. She is eating reasonably well. Examination is unchanged.
Vital Signs:
Vital Signs
Temp Pulse Resp BP Pulse Ox
97.9 F 79 16 138/61 97
07/26/25 11:56 07/26/25 11:56 07/26/25 11:56 07/26/25 11:56 07/26/25 11:56
Lab Results:
Laboratory Data
WBC 3.7 10^3/uL (4.8-10.8) L 07/26/25 06:33
Hgb 8.1 g/dL (12.0-16.0) L 07/26/25 06:33
Plt Count 131 10^3/uL (130-400) 07/26/25 06:33
PT 20.7 Sec (11.4-14.6) H 07/26/25 06:33
INR 1.76 07/26/25 06:33
eGFR 46.62 07/26/25 06:33
--- NOTE | 2025-07-26 15:53 | CM ---
Addendum entered by Waldemar Johnson 07/26/25 17:48:
Scripts sent in. CM called pharmacy again. They did receive scripts however neither Eliquis or Xarelto are covered under her insurance. Each drug is approx $600.00/month. They said they have her on Coumadin. PA notified.
Original Note:
Consult for Eliquis 20 mg PO BID and Xarelto 20 mg PO daily. Called patient's pharmacy in [facility]. Pharmacy unable to check pricing under patient's insurance without a script. PA notified.
[2025-07-26] MEDS: TYLENOL 650 MG PO (16:35)
[2025-07-26] MEDS: COUMADIN 7 MG PO (17:35)
[2025-07-26] MEDS: VITAMIN D3 (cholecalciferol) 25 MCG PO (17:35)
[2025-07-26] MEDS: SENOKOT-S 1 TABLET PO (20:09)
[2025-07-27] MEDS: TYLENOL 650 MG PO ×2 (00:32→08:28)
[2025-07-27 03:11] VITALS: BP 147/63
[2025-07-27] MEDS: NSS 1000 IV (03:37)
--- NOTE | 2025-07-27 08:06 | W.PN.HOSP.TC ---
Today's Communication/Plan
-
await CMP
await INR - dose warfarin for the evening according to
Abd CR to evaluate constipation/worsening abd pain -- no immediate concern for obstruction at this time
If significant stool burden, will add Mag Citrate for BM
Repeat Orthostatic vitals -- if remains asymptomatic or ortho vitals neg. will likely dv IVF
Assessment / Plan
Assessment / Plan
Susu is a 75-year-old female with a past medical history SCC recently diagnosed in March 2025 (follows with Dr. 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 He was found to be hyponatremic, incidental CT findings concerning for
pancreatitis.
## Symptomatic hypovolemic hyponatremia
## Psychogenic Polydipsia
# Orthostasis
# Deconditioning
Dizziness, Lightheadedness most likely secondary to poor po intake and increased free water intake. Likely contributory element of deconditioning secondary to the hospital stay and chemotherapy
- Random cortisol wnl
- Veronica 55, Urine Osm 390
- s/p 500cc NS bolus x1
- Na 125 on admission, baseline seems to be wnl, no prior h/o hyponatremia
- Na improving
- Orthostatic vital signs positive
- will continue with IVF and monitor for resolution. If persistent, may need to consider compression vs. medication moving forward
- Patient minimally symptomatic at this time
- Remains orthostatic positive, however symptoms are improving -- will hold off on midodrine for now
- continue on IV NS 80cc/hr
- trend BMP
- Continue with fluid restriction to 50oz
- PT OT eval -- no skilled PT needs
#UTI, asymptomatic, uncomplicated
Patient without history of dysuria, polyuria, systemic signs
- UA demonstrating nitrate, leukocyte esterase, greater than 100 WBCs, many bacteria
- Reflex culture positive showing>100k CFU E coli., Pansensitive
- Completed ceftriaxone 3-day course
# Abdominal pain/nausea
# Mild edema/peripancreatic inflammatory changes of the pancreatic head
# Supraumbilical colonic hernia, prior to admission
Imaging findings concerning for possible pancreatitis, however lipase level within normal limits and abdominal exam unconvincing. Patient with known supraumbilical colonic hernia, plans as outpatient for surgical correction however interrupted by
recent diagnosis of lung cancer.
- No clear correlation to chemotherapy agents as a possible cause of pancreatitis
- No history of alcohol intake
- No evidence of gallstones, cholecystitis, choledocholithiasis
- Nausea may be secondary to chemotherapy -- prn zofran
- prn Tums, simethicone
- Will opt for a low residue diet and bowel regimen in an effort to reduce colicky abdominal pain most likely worsened by stool transit through herniated colon
- continue with Tylenol 1000mg prn, avoid opioids if at all possible
- will obtain abd cr -- may need mag citrate for BM which will likely improve abd pain
# History of DVT/PE
Home Coumadin dosing regimen managed by Dr. hWyte
- Outpatient PT/INR elevated at 4.3, Coumadin held for several days prior to admission
- Daily INR
- 1.6 - 1.74 - 1.77 - 1.76
- dosing 5mg warfarin x3, 7mg x1 dose -- re-dose today based on INR
- May benefit from Eliquis/Xarelto over Coumadin -- Eliquis/Xarelto will cost her $600/month -- will keep Coumadin
- trend INR and dose warfarin daily for now
# SCC of the lung, stage IIIa
Follows with Dr. Whyte at [place] -- current chemo regimen includes Keytruda, Carboplatin, Taxol [id number] x4 cycles
- currently on cycle 2, last dosed July 08
- has follow up cycle in on 07/29
- Heme/Onc following
- TT oncologist; chemotherapy seems unlikely to be the cause of pancreatitis/CT abdomen findings
#CKD stage IIIa
Baseline creatinine, creatinine May 2025 1.6
- Creatinine admission 1.7, potential baseline, though ADEN on CKD not entirely ruled out given hypovolemic state
- Hold nephrotoxic medication
- IV fluids as above
#Essential hypertension
- Hypotensive on arrival, hypovolemic
- Hold lisinopril for now
- Monitor BPs
DVT prophylaxis: Coumadin
CODE STATUS: DNR
Anticipated Discharge: 24 - 48 hours
Subjective/Interval History
-
Date of Service: July 27, 2025
no acute events overnight. Still having colicky abdominal pain, partially relieved by Tylenol 650mg. Worked well with PT/OT without complaints or lightheadedness, shortness of breath, presyncope, etc. No orthostatics were done yesterday despite BID
frequency.
Objective Data
-
Labs:
Laboratory Results
07/27/25
06:00
WBC Pending
Hgb Pending
Hct Pending
Plt Count Pending
PT Pending
INR Pending
Sodium Pending
Potassium Pending
Chloride Pending
Carbon Dioxide Pending
BUN Pending
Creatinine Pending
Glucose Pending
Calcium Pending
Total Bilirubin Pending
AST Pending
ALT Pending
Alkaline Phosphatase Pending
Vital Signs:
Vital Signs
Temp Pulse Resp BP Pulse Ox
97.2 F 64 18 147/63 97
07/27/25 03:11 07/27/25 03:11 07/27/25 03:11 07/27/25 03:11 07/27/25 03:11
I&O
07/26/25 07/27/25 07/28/25
06:59 06:59 06:59
Intake Total 420 / 420 1440 / 1440
Balance 420 / 420 1440 / 1440
Review of Systems
-
History Source: Patient
All other systems: Reviewed and negative
Constitutional: Reports No Symptoms
EENT: Reports No Symptoms Reported
Respiratory: Reports No Symptoms
Cardiac: Reports No Symptoms
Abdomen/GI: Reports Abdominal Pain and Constipated; Denies Nausea, Vomiting or Diarrhea
Genitourinary: Reports No Symptoms
Musculoskeletal: Reports No Symptoms
Skin: Reports No Symptoms
Neuro: Reports No Symptoms
Endocrine: Reports No Symptoms
Hematologic / Lymphatic: Reports No Symptoms
Allergy / Immunology: Reports No Symptoms
Physical Exam
-
General: Well Developed, Well Nourished, No Apparent Distress and Comfortable
HEENT: Normocephalic, Atraumatic, Moist Mucous Membranes, Anicteric, [place] Conjunctivae, PERRLA, Nose Appears Normal and Ears Appear Normal
Respiratory: Clear to Auscultation and Non Labored Respirations; Negative Wheezes, Rales or Rhonchi
Cardiac: Regular Rhythm and S1/S2; Negative Murmur or Rub
GI: Soft, Nondistended, Normal Bowel Sounds and Tender; Negative No Hernias (supraumbilical colonic hernia, unchanged, no signs of incarceration )
Rectal: Deferred by Provider
Genito-urinary: Deferred by me
Musculoskeletal: No Clubbing, No Cyanosis and No Edema
Skin: Warm, Dry and IV Access / Catheter Site
Neuro: Awake, Alert and Nonfocal/Grossly Intact
Psych: Calm and Intact Judgement/Insight
[2025-07-27 08:10] VITALS: BP 146/75
[2025-07-27] MEDS: MIRALAX 17 GRAMS PO (08:28)
[2025-07-27 09:19] LABS: INR 2.22; PT 24.2 Sec (11.4-14.6)
[2025-07-27 09:53] LABS: ALT (SGPT) 11 U/L (0-35); AST (SGOT) 20 U/L (14-36); Albumin 3.3 g/dl (3.5-5.0); Alkaline Phosphatase 80 U/L (38-126); Blood Urea Nitrogen 15 mg/dl (7-17); Calcium 9.8 mg/dl (8.4-10.2); Carbon Dioxide 27 mmol/L (22-30); Chloride 104 mmol/L (98-107); Estimated Creatinine Clearance 44 ml/min; Glucose 80 mg/dl (70-99); Potassium 5.2 mmol/L (3.5-5.1); Sodium 134 mmol/L (135-145); Total Protein 5.9 g/dl (6.3-8.2); eGFR 46.62
[2025-07-27 09:57] LABS: Hematocrit 27.1 % (37.0-47.0); Hemoglobin 8.6 g/dL (12.0-16.0); Mean Corp Hgb Conc. 31.7 g/dL (33.0-37.0); Mean Corpuscular Volume 87.7 fL (81.0-99.0); Platelet Count 101 10^3/uL (130-400); Red Cell Dist. Width 16.9 % (11.5-14.5)
[2025-07-27 11:00] VITALS: BP 169/87
[2025-07-27 11:14] LABS: Nucleated Red Blood Cells % 0 %
[2025-07-27] MEDS: CITROMA 300 ML PO (11:37)
[2025-07-27] MEDS: LOKELMA 5 GRAM PO (11:37)
[2025-07-27] MEDS: VITAMIN D3 (cholecalciferol) 25 MCG PO (18:01)
[2025-07-27] MEDS: COUMADIN 5 MG PO (18:04)
[2025-07-27 19:30] VITALS: BP 150/76
[2025-07-27 23:00] VITALS: BP 135/74; BP 146/76; BP 158/76; PULSE 102; PULSE 74; PULSE 81
[2025-07-28] VITALS (8 sets, daily range): BP systolic 101–162; BP diastolic 65–91; PULSE 79–109; BMI 28.6
[2025-07-28] MEDS: MIRALAX 17 GRAMS PO (08:25)
[2025-07-28 09:33] LABS: Hematocrit 28.1 % (37.0-47.0); Hemoglobin 9.3 g/dL (12.0-16.0); Mean Corp Hgb Conc. 33.1 g/dL (33.0-37.0); Mean Corpuscular Volume 87.5 fL (81.0-99.0); Platelet Count 109 10^3/uL (130-400); Red Cell Dist. Width 16.8 % (11.5-14.5)
[2025-07-28 09:50] LABS: INR 2.89; PT 29.8 Sec (11.4-14.6)
--- NOTE | 2025-07-28 10:40 | W.PN.ONC ---
Today's Communication / Plan
-
Continue outpatient chemotherapy with Carbo-Tax Pembro squamous cell carcinoma
Bowel regimen reviewed
Patient will self adjust warfarin when p.o. intake declines she typically takes 5-5-2.5 instructed to take 2.5 daily when experiencing poor p.o. intake
Short interval follow-up in the office
Impression
Impression
fatigue/lethargy
dehydration
hyponatremia
CKD
UTI
anemia- multifactorial - chemotherapy/ malignancy - CKD
NSCLC - stage III - Dr. Whyte - s/p 2 cycles - carbo/taxol/ keytruda - last 07/08
Subjective/Objective
Subjective/Objective
Abdominal pain much improved. Obstipation improved. Now having loose stools
Vital Signs:
Vital Signs
Temp Pulse Resp BP Pulse Ox
98.0 F 72 16 159/74 96
07/28/25 07:51 07/28/25 07:51 07/28/25 07:51 07/28/25 07:51 07/28/25 10:36
Physical exam unchanged
Lab Results:
Laboratory Data
WBC 3.5 10^3/uL (4.8-10.8) L 07/28/25 09:14
Hgb 9.3 g/dL (12.0-16.0) L 07/28/25 09:14
Plt Count 109 10^3/uL (130-400) L 07/28/25 09:14
PT 29.8 Sec (11.4-14.6) H 07/28/25 09:14
INR 2.89 07/28/25 09:14
eGFR 46.62 07/27/25 08:36
[2025-07-28 10:44] LABS: Blood Urea Nitrogen 16 mg/dl (7-17); Calcium 10.0 mg/dl (8.4-10.2); Carbon Dioxide 24 mmol/L (22-30); Chloride 102 mmol/L (98-107); Estimated Creatinine Clearance 47 ml/min; Glucose 83 mg/dl (70-99); Potassium 4.3 mmol/L (3.5-5.1); Sodium 133 mmol/L (135-145); eGFR 51.75
--- NOTE | 2025-07-28 11:47 | W.PN.HOSP.TC ---
Today's Communication/Plan
-
orthostatic negative
improving abd pain s/p large BM
continue with bowel regimen
coumadin dosing per onc
observe one more day, if tolerating diet with no abd pain and appropriate bowel movement on bowel regimen, can likely dc tomorrow
Assessment / Plan
Assessment / Plan
Susu is a 75-year-old female with a past medical history SCC recently diagnosed in March 2025 (follows with Dr. 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 He was found to be hyponatremic, incidental CT findings concerning for
pancreatitis.
## Symptomatic hypovolemic hyponatremia
## Psychogenic Polydipsia
# Orthostasis
# Deconditioning
Dizziness, Lightheadedness most likely secondary to poor po intake and increased free water intake. Likely contributory element of deconditioning secondary to the hospital stay and chemotherapy
- Random cortisol wnl
- Veronica 55, Urine Osm 390
- s/p 500cc NS bolus x1
- Na 125 on admission, baseline seems to be wnl, no prior h/o hyponatremia
- Na improving
- Orthostatic vital signs positive
- will continue with IVF and monitor for resolution. If persistent, may need to consider compression vs. medication moving forward
- Patient minimally symptomatic at this time
- orthostatic negative now
- continue on IV NS 80cc/hr
- trend BMP
- Continue with fluid restriction to 50oz
- PT OT eval -- no skilled PT needs
#UTI, asymptomatic, uncomplicated
Patient without history of dysuria, polyuria, systemic signs
- UA demonstrating nitrate, leukocyte esterase, greater than 100 WBCs, many bacteria
- Reflex culture positive showing>100k CFU E coli., Pansensitive
- Completed ceftriaxone 3-day course
# Abdominal pain/nausea
# Mild edema/peripancreatic inflammatory changes of the pancreatic head
# Supraumbilical colonic hernia, prior to admission
Imaging findings concerning for possible pancreatitis, however lipase level within normal limits and abdominal exam unconvincing. Patient with known supraumbilical colonic hernia, plans as outpatient for surgical correction however interrupted by
recent diagnosis of lung cancer.
- No clear correlation to chemotherapy agents as a possible cause of pancreatitis
- No history of alcohol intake
- No evidence of gallstones, cholecystitis, choledocholithiasis
- Nausea may be secondary to chemotherapy -- prn zofran
- prn Tums, simethicone
- continue with Tylenol 1000mg prn, avoid opioids if at all possible
- abd cr showing moderate stool burden
- large bm after mag citrate
- keep bowel regimen moving forward
# History of DVT/PE
Home Coumadin dosing regimen managed by Dr. Whyte
- Outpatient PT/INR elevated at 4.3, Coumadin held for several days prior to admission
- Daily INR
- 1.6 - 1.74 - 1.77 - 1.76
- dosing 5mg warfarin x3, 7mg x1 dose -- re-dose today based on INR
- May benefit from Eliquis/Xarelto over Coumadin -- Eliquis/Xarelto will cost her $600/month -- will keep Coumadin
- Dr. Whyte seen, coumadin 5 -5 -2.5 with decreased dosing as needed if not eating after chemo
- trend INR and dose warfarin daily for now
# SCC of the lung, stage IIIa
Follows with Dr. Whyte at [place] -- current chemo regimen includes Keytruda, Carboplatin, Taxol [id number] x4 cycles
- currently on cycle 2, last dosed July 08
- has follow up cycle in on 07/29
- Heme/Onc following
- TT oncologist; chemotherapy seems unlikely to be the cause of pancreatitis/CT abdomen findings
#CKD stage IIIa
Baseline creatinine, creatinine May 2025 1.6
- Creatinine admission 1.7, potential baseline, though ADEN on CKD not entirely ruled out given hypovolemic state
- Hold nephrotoxic medication
- IV fluids as above
#Essential hypertension
- Hypotensive on arrival, hypovolemic
- Hold lisinopril for now
- Monitor BPs
DVT prophylaxis: Coumadin
CODE STATUS: DNR
Anticipated Discharge: Within 24 hours
Subjective/Interval History
-
Date of Service: July 28, 2025
had large bm overnight with mag citrate and resolution of abd pain. no new symptoms or overnight events.
Objective Data
-
Labs:
Laboratory Results
07/28/25
09:14
WBC 3.5 L
Hgb 9.3 L
Hct 28.1 L
Plt Count 109 L
PT 29.8 H
INR 2.89
Sodium 133 L
Potassium 4.3
Chloride 102
Carbon Dioxide 24
BUN 16
Creatinine 1.1 H
Glucose 83
Calcium 10.0
Vital Signs:
Vital Signs
Temp Pulse Resp BP Pulse Ox
98.0 F 72 16 159/74 96
07/28/25 07:51 07/28/25 07:51 07/28/25 07:51 07/28/25 07:51 07/28/25 10:36
I&O
07/27/25 07/28/25 07/29/25
06:59 06:59 06:59
Intake Total 1440 / 1440 480 / 480
Balance 1440 / 1440 480 / 480
Review of Systems
-
History Source: Patient
All other systems: Reviewed and negative
Constitutional: Reports No Symptoms
EENT: Reports No Symptoms Reported
Respiratory: Reports No Symptoms
Cardiac: Reports No Symptoms
Abdomen/GI: Reports No Symptoms
Genitourinary: Reports No Symptoms
Musculoskeletal: Reports No Symptoms
Skin: Reports No Symptoms
Neuro: Reports No Symptoms
Physical Exam
-
General: Well Developed, Well Nourished, No Apparent Distress and Comfortable
HEENT: Normocephalic, Atraumatic, Moist Mucous Membranes, Anicteric, [place] Conjunctivae, PERRLA, Nose Appears Normal and Ears Appear Normal
Respiratory: Clear to Auscultation and Non Labored Respirations; Negative Wheezes, Rales or Rhonchi
Cardiac: Regular Rhythm and S1/S2; Negative Murmur or Rub
GI: Soft, Nontender, Nondistended and Normal Bowel Sounds; Negative No Hernias (stable supraumbilical hernia, no signs of incarceration)
Genito-urinary: No Costovertebral Tender
Musculoskeletal: No Clubbing, No Cyanosis and No Edema
Skin: Warm, Dry and IV Access / Catheter Site
Neuro: Awake, Alert and Nonfocal/Grossly Intact
Psych: Calm and Intact Judgement/Insight
--- NOTE | 2025-07-28 14:34 | WOUNDNOTE ---
[facility] RN note: Patient seen for prevalence study. She has a chronic appearing dull red area with dry rough feeling skin at the R coccyx/buttocks area. Does not appear to be a HAPI. Patient stated she needs to move more. She can turn self in bed. She
reports her appetite is improved. Skin prep applied to R coccyx/buttocks. She declined a protective silicone border foam. t/c SPD and ordered a bariatric air chair cushion. Instructed patient to take the air chair cushion when discharged. Updated RN
Hetal.
--- NOTE | 2025-07-28 15:07 | CM ---
Patient seen at bedside in [address] [place] [address]. Patient states she is going to her girlfriend home in [place] not with . Patient stated that is on program with [employer] for lower cost. Patient asked about application. CM will provide coupon and
information about support program. patient to consider options. Patient declined VN referrals. CM will conitnue to follow for discharge planning needs.
Plan; home with friend; [employer] support program
[2025-07-28] MEDS: VITAMIN D3 (cholecalciferol) 25 MCG PO (17:40)
[2025-07-29 06:00] VITALS: BMI 28.5
[2025-07-29 07:00] VITALS: BP 151/71
--- NOTE | 2025-07-29 08:01 | W.PN.HOSP.TC ---
Today's Communication/Plan
-
Medically stable for d/c today
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
continue on Miralax to keep stools soft and avoid constipation
Chemo follow up with Oncology
resume Lisinopril at home
Assessment / Plan
Assessment / Plan
Susu is a 75-year-old female with a past medical history SCC recently diagnosed in March 2025 (follows with Dr. 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 He was found to be hyponatremic, incidental CT findings concerning for
pancreatitis.
## Symptomatic hypovolemic hyponatremia
## Psychogenic Polydipsia
# Orthostasis
# Deconditioning
Dizziness, Lightheadedness most likely secondary to poor po intake and increased free water intake. Likely contributory element of deconditioning secondary to the hospital stay and chemotherapy
- Random cortisol wnl
- Veronica 55, Urine Osm 390
- s/p 500cc NS bolus x1
- Na 125 on admission, baseline seems to be wnl, no prior h/o hyponatremia
- Na improving -- stable
- Orthostatic vital signs positive
- will continue with IVF and monitor for resolution. If persistent, may need to consider compression vs. medication moving forward
- Patient minimally symptomatic at this time
- orthostatic negative now
- continue on IV NS 80cc/hr
- trend BMP
- Continue with fluid restriction to 50oz
- PT OT eval -- no skilled PT needs
#UTI, asymptomatic, uncomplicated
Patient without history of dysuria, polyuria, systemic signs
- UA demonstrating nitrate, leukocyte esterase, greater than 100 WBCs, many bacteria
- Reflex culture positive showing>100k CFU E coli., Pansensitive
- Completed ceftriaxone 3-day course
# Abdominal pain/nausea
# Mild edema/peripancreatic inflammatory changes of the pancreatic head
# Supraumbilical colonic hernia, prior to admission
Imaging findings concerning for possible pancreatitis, however lipase level within normal limits and abdominal exam unconvincing. Patient with known supraumbilical colonic hernia, plans as outpatient for surgical correction however interrupted by
recent diagnosis of lung cancer.
- No clear correlation to chemotherapy agents as a possible cause of pancreatitis
- No history of alcohol intake
- No evidence of gallstones, cholecystitis, choledocholithiasis
- Nausea may be secondary to chemotherapy -- prn zofran
- prn Tums, simethicone
- continue with Tylenol 1000mg prn, avoid opioids if at all possible
- abd cr showing moderate stool burden
- large bm after mag citrate
- keep bowel regimen moving forward -- tolerated overnight
# History of DVT/PE
Home Coumadin dosing regimen managed by Dr. Whyte
- Outpatient PT/INR elevated at 4.3, Coumadin held for several days prior to admission
- Daily INR
- 1.6 - 1.74 - 1.77 - 1.76
- dosing 5mg warfarin x3, 7mg x1 dose -- re-dose today based on INR
- May benefit from Eliquis/Xarelto over Coumadin -- Eliquis/Xarelto will cost her $600/month -- will keep Coumadin
- Dr. Whyte seen, coumadin 5 -5 -2.5 with decreased dosing as needed if not eating after chemo
- trend INR and dose warfarin daily for now
# SCC of the lung, stage IIIa
Follows with Dr. Whyte at [facility] -- current chemo regimen includes Keytruda, Carboplatin, Taxol [id number] x4 cycles
- currently on cycle 2, last dosed July 08
- has follow up cycle in on 07/29
- Heme/Onc following
- TT oncologist; chemotherapy seems unlikely to be the cause of pancreatitis/CT abdomen findings
#CKD stage IIIa
Baseline creatinine, creatinine May 2025 1.6
- Creatinine admission 1.7, potential baseline, though ADEN on CKD not entirely ruled out given hypovolemic state
- Hold nephrotoxic medication
- IV fluids as above
#Essential hypertension
- Hypotensive on arrival, hypovolemic
- Hold lisinopril for now
- Monitor BPs
DVT prophylaxis: Coumadin
CODE STATUS: DNR
Anticipated Discharge: Today
Subjective/Interval History
-
Date of Service: July 29, 2025
no acute complaints. no overnight events.
Objective Data
-
Labs:
Laboratory Results
07/29/25
06:00
WBC Pending
Hgb Pending
Hct Pending
Plt Count Pending
PT Pending
INR Pending
Sodium Pending
Potassium Pending
Chloride Pending
Carbon Dioxide Pending
BUN Pending
Creatinine Pending
Glucose Pending
Calcium Pending
Vital Signs:
Vital Signs
Temp Pulse Resp BP Pulse Ox
98.2 F 79 18 142/74 97
07/28/25 23:14 07/28/25 23:14 07/28/25 23:14 07/28/25 23:14 07/28/25 23:14
I&O
07/28/25 07/29/25 07/30/25
06:59 06:59 06:59
Intake Total 480 / 480 1170 / 1170
Balance 480 / 480 1170 / 1170
Review of Systems
-
History Source: Patient
All other systems: Reviewed and negative
Constitutional: Reports No Symptoms
EENT: Reports No Symptoms Reported
Respiratory: Reports No Symptoms
Cardiac: Reports No Symptoms
Abdomen/GI: Reports No Symptoms
Genitourinary: Reports No Symptoms
Musculoskeletal: Reports No Symptoms
Skin: Reports No Symptoms
Neuro: Reports No Symptoms
Physical Exam
-
General: Well Developed, Well Nourished, No Apparent Distress, Comfortable, Respiratory Distress and Conversant
HEENT: Normocephalic, Atraumatic, Moist Mucous Membranes, Anicteric, [place] Conjunctivae, No Ptosis, PERRLA and Nose Appears Normal
Respiratory: Clear to Auscultation and Non Labored Respirations; Negative Wheezes, Rales or Rhonchi
Cardiac: Regular Rhythm and S1/S2; Negative Murmur or Rub
GI: Soft, Nontender, Nondistended and Normal Bowel Sounds; Negative No Hernias (stable supraumbilical hernia, no signs of incarceration)
Rectal: Deferred by Provider
Genito-urinary: Deferred by me
Musculoskeletal: No Clubbing, No Cyanosis and No Edema
Skin: Warm, Dry and IV Access / Catheter Site
Neuro: AO x 3
Psych: Calm and Intact Judgement/Insight
[2025-07-29 08:24] LABS: Hematocrit 24.8 % (37.0-47.0); Hemoglobin 8.1 g/dL (12.0-16.0); Mean Corp Hgb Conc. 32.7 g/dL (33.0-37.0); Mean Corpuscular Volume 86.1 fL (81.0-99.0); Platelet Count 83 10^3/uL (130-400); Red Cell Dist. Width 17.2 % (11.5-14.5)
[2025-07-29] MEDS: MIRALAX 17 GRAMS PO (08:27)
[2025-07-29 08:29] LABS: INR 2.81; PT 29.8 Sec (11.4-14.6)
[2025-07-29 08:46] LABS: Blood Urea Nitrogen 19 mg/dl (7-17); Calcium 9.6 mg/dl (8.4-10.2); Carbon Dioxide 27 mmol/L (22-30); Chloride 103 mmol/L (98-107); Estimated Creatinine Clearance 47 ml/min; Glucose 80 mg/dl (70-99); Potassium 4.4 mmol/L (3.5-5.1); Sodium 134 mmol/L (135-145); eGFR 51.75
[2025-07-29 11:18] VITALS: BP 136/87
[2025-07-29 11:21] VITALS: BP 127/68; BP 136/87; BP 145/72; PULSE 104; PULSE 85; PULSE 86
--- NOTE | 2025-07-29 11:37 | CM ---
Patient seen at bedside on [address]. Patient declined VN services, states she is going to go home and picker belongings and go to stay with her friend in [place]. Patient completed IMM and signed form placed on chart. CM will continue to follow for
discharge planning needs.
Plan; home with no needs
--- NOTE | 2025-07-29 12:41 | W.DCSUMMARY ---
Documented by User: Devang Ohara MD, Resident 07/29/25 13:00
Discharge Summary
Discharge Data
Date of Admission: 07/23/25
Date of Discharge: 07/29/25
Total time spent discharging patient (in min): >30m
-
Pending Results: No
Hospital Course
Discharging Physician : Dr. Perez, Dr. Ohara
Disposition : Home
Primary care physician : Unkown
Principal Discharge diagnosis : Symptomatic Hyponatremia, psychogenic polydipsia, orthostasis, deconditioning, asymptomatic uncomplicated UTI,
Chronic Discharge diagnosis : SCC of the lung, stage IIIa, CKD Stage IIIa, Essential Hypertension
Hospital Course :
Susu is a 75-year-old female with a past medical history SCC recently diagnosed in March 2025 (follows with Dr. 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 He was found to be hyponatremic, incidental CT findings concerning for
pancreatitis.
## Symptomatic hypovolemic hyponatremia
## Psychogenic Polydipsia
# Orthostasis
# Deconditioning
Dizziness, Lightheadedness most likely secondary to poor po intake and increased free water intake. Likely contributory element of deconditioning secondary to the hospital stay and chemotherapy.
- Random cortisol wnl
- Veronica 55, Urine Osm 390
- s/p 500cc NS bolus x1
- Na 125 on admission, baseline seems to be wnl, no prior h/o hyponatremia
- Na improving -- stable off IVF with PO intake alone -- Na on 07/29/25 was 134
- Orthostatic vital signs positive initially
- Patient asymptomatic at time of discharge
- orthostatic negative as of 07/28/25
- Stable off IVF
- trend BMP
- Continue with fluid restriction to 50oz
- PT OT eval -- no skilled PT needs
#UTI, asymptomatic, uncomplicated
Patient without history of dysuria, polyuria, systemic signs, however low BP and positive UA. Reflex culture positive showing>100k CFU E coli., Pansensitive. Completed ceftriaxone 3-day course.
# Abdominal pain/nausea
# Mild edema/peripancreatic inflammatory changes of the pancreatic head
# Supraumbilical colonic hernia, prior to admission
Imaging findings concerning for possible pancreatitis, however lipase level within normal limits and abdominal exam unconvincing. Patient with known supraumbilical colonic hernia, plans as outpatient for surgical correction however interrupted by
recent diagnosis of lung cancer. No clear correlation to chemotherapy agents as a possible cause of pancreatitis. No history of alcohol intake. No evidence of gallstones, cholecystitis, choledocholithiasis. Given prn zofran for nausea, tums,
simethicone. Required one dose of Oxycodone, afterwards Tylenol was sufficient for pain control.
Ultimately, she was reporting constipation not relieved by miralax and senokot-s. Abd Xray confirmed moderate stool burden, no signs of obstruction. Given mag citrate with resultant multiple large BMs and improvement in abd pain. Tolerant of
regular diet. D/c home with daily miralax and conscientious eating to ensure soft stool and easy transit to avoid constipation which would aggravate hernia. Ultimate treatment would be surgical correction of supraumbilical hernia with surgeon after
chemotherapy.
# History of DVT/PE
Home Coumadin dosing regimen managed by Dr. Whyte. Outpatient PT/INR elevated prior to admission at 4.3, Coumadin held for several days prior to admission. Daily INRs were <2 and she was given 5-5-5-7mg coumadin. INR increased above 2 and she was
decreased to 5mg nightly. Eliquis and Xarelto were priced at pharmacy, both still several hundred dollars. Seen by Dr. Whyte during admission with plans to resume Coumadin at home dosing 5-5-2.5 and instructions to decrease to 2.5mg daily if pt
unable to tolerate food while on chemo. Follow up with Dr. Whyte to be scheduled soon.
# SCC of the lung, stage IIIa
Follows with Dr. Whyte at [facility] -- current chemo regimen includes Keytruda, Carboplatin, Taxol [id number] x4 cycles. Finished Cycle 2 on July 08 prior to onset of nausea, abd pain, weakness. Did NOT receive 3rd cycle which was scheduled for
07/29/25. To follow up with [facility] after discharge to schedule further treatment.
#CKD stage IIIa
Baseline creatinine, creatinine May 2025 1.6. Creatinine on admission 1.7, potential baseline, though ADEN on CKD not entirely ruled out given hypovolemic state. Nephrotoxic medication held. Given IVF NS. Leach Tank Tender on day of discharge 07/29/25 was 1.1.
#Essential hypertension
Hypotensive on arrival, hypovolemic. Lisinopril held. Pressures improved, Na improved, BPs increased to 140-150s w/o signs of orthostasis. D/c on Lisinopril 10mg QD with instructions to check BP at home. Follow up with PCP for antihypertensive dose
adjustment as needed.
Important imaging findings :
CT Abd/pel Without Iv Or Oral (07/23/2025):
1. Findings suggesting acute interstitial edematous pancreatitis about the pancreatic head with mild adjacent duodenal wall thickening (paraduodenal/groove pancreatitis). Recommend correlation with lipase levels.
2. Findings suggesting bibasilar infectious/inflammatory bronchiolitis.
CR Abdomen - 1 View (07/27/2025):
Moderate fecal material in the colon. Mildly improved.
No evidence of intestinal obstruction.
Nonobstructing bilateral renal stones. Stable.
Discharge Plan
-
Patient Disposition: Home (Routine Discharge)
Discharge Diagnosis/Procedures: Symptomatic Hyponatremia
Orthostasis
Constipation
Stage IIIa SCC Lung
H/o DVT/PE
Condition: Good
Diet: Regular
Additional Diets: Fluid Restriction to 50oz
Activity: As tolerated
Driving Restrictions: As prior to admission
Bathing Restrictions: None
Activity Restrictions/Additional Instructions:
Barrier ointment (i.e. Vaseline) to coccyx/buttocks twice a day.
Pressure redistributing chair cushion (i.e. Bariatric air chair cushion).
Elevate heels off bed with pillow/s.
Referrals:
Jersey Whyte, DO [Active, Hematology / Oncology]
UNKNOWN - PT NOT,INTERVIEWE [Family Provider]
Additional Discharge Medication Instructions: Coumadin:
Continue with 5mg - 5mg - 2.5mg as discussed with Dr. Whyte. Reduce to 2.5mg daily if not eating due to abdominal pain/chemo.
Miralax:
Continue with daily Miralax to keep the poop soft and avoid constipation. You can eat regular food.
If you find yourself not able to eat, do NOT drink plain water. Instead, drink either Pedialyte, Gatorade, juice, or something with salt in it. And of course, call your doctor.
You are OK to restart Lisinopril, but at a smaller dose. Take 1/2 of your 20mg tablet Lisinopril for a total of 10mg daily. Observe for feelings of weakness, dizziness, lightheadedness. If possible, check your blood pressure at home every other day,
or if you are symptomatic, to make sure the pressure doesn't go too low.
Follow up with your PCP in 1 week.
Relax at [email or web address] Enjoy time with Doretha.
Prescriptions:
New
polyethylene glycol 3350 17 gram Powder In Packet
17 g PO DAILY 30 Days Qty: 30 0RF
Continued
cholecalciferol (vitamin D3) 1,000 UNIT capsule
1,000 unit PO QPM
warfarin 5 mg Tablet
5 mg PO DIRECTED
Rx Instructions:
take 5mg friday and 2.5mg friday at night hold and friday
albuterol sulfate 90 mcg/actuation Hfa Aerosol Inhaler
2 puff INHALATION R Q6HPRN PRN (Reason: sob)
therapeutic multivitamin Tablet
1 tab PO DAILY
Changed
lisinopril 20 mg Tablet
10 mg PO DAILY Qty: 0 0RF
Discharge Orders:
Discharge Patient (As Directed); Ordered 07/29/25
Ordered By: Devang Ohara
Discharge Date and Time
Print Language: HEBREW

Documented by User: Andres Perez DO 07/29/25 13:09
Discharge Summary
Discharge Data
Date of Admission: 07/23/25
Date of Discharge: 07/29/25
Total time spent discharging patient (in min): 33
Discharge Plan
-
Patient Disposition: Home (Routine Discharge)
Discharge Diagnosis/Procedures: Symptomatic Hyponatremia
Orthostasis
Constipation
Stage IIIa SCC Lung
H/o DVT/PE
Condition: Good
Diet: Regular
Additional Diets: Fluid Restriction to 50oz
Activity: As tolerated
Driving Restrictions: As prior to admission
Bathing Restrictions: None
Activity Restrictions/Additional Instructions:
Barrier ointment (i.e. Vaseline) to coccyx/buttocks twice a day.
Pressure redistributing chair cushion (i.e. Bariatric air chair cushion).
Elevate heels off bed with pillow/s.
Referrals:
Jersey Whyte, DO [Active, Hematology / Oncology]
UNKNOWN - PT NOT,INTERVIEWE [Family Provider]
Additional Discharge Medication Instructions: Coumadin:
Continue with 5mg - 5mg - 2.5mg as discussed with Dr. Whyte. Reduce to 2.5mg daily if not eating due to abdominal pain/chemo.
Miralax:
Continue with daily Miralax to keep the poop soft and avoid constipation. You can eat regular food.
If you find yourself not able to eat, do NOT drink plain water. Instead, drink either Pedialyte, Gatorade, juice, or something with salt in it. And of course, call your doctor.
You are OK to restart Lisinopril, but at a smaller dose. Take 1/2 of your 20mg tablet Lisinopril for a total of 10mg daily. Observe for feelings of weakness, dizziness, lightheadedness. If possible, check your blood pressure at home every other day,
or if you are symptomatic, to make sure the pressure doesn't go too low.
Follow up with your PCP in 1 week.
Relax at [employer] [place] Enjoy time with Doretha.
Prescriptions:
New
polyethylene glycol 3350 17 gram Powder In Packet
17 g PO DAILY 30 Days Qty: 30 0RF
Continued
cholecalciferol (vitamin D3) 1,000 UNIT capsule
1,000 unit PO QPM
warfarin 5 mg Tablet
5 mg PO DIRECTED
Rx Instructions:
take 5mg friday and 2.5mg friday at night hold and friday
albuterol sulfate 90 mcg/actuation Hfa Aerosol Inhaler
2 puff INHALATION R Q6HPRN PRN (Reason: sob)
therapeutic multivitamin Tablet
1 tab PO DAILY
Changed
lisinopril 20 mg Tablet
10 mg PO DAILY Qty: 0 0RF
Discharge Orders:
Discharge Patient (As Directed); Ordered 07/29/25
Ordered By: Devang Ohara
Discharge Date and Time
Print Language: HEBREW
== END 2025-07-29 15:03 | disposition home or self-care (01) | DRG 641 ==
LOC: 2 NORTH 16:47
PROVIDERS: Physician Assistant; ADMITTING PHYSICIAN Internal Medicine; ATTENDING PHYSICIAN Internal Medicine; CONSULT PHYSICIAN Internal Medicine Hematology & Oncology; EMERGENCY PHYSICIAN Emergency Medicine
DX: E87.1 Hypo-osmolality and hyponatremia (principal); N39.0 Urinary tract infection, site not specified; C34.90 Malignant neoplasm of unspecified part of unspecified bronchus or lung; T45.1X5A Adverse effect of antineoplastic and immunosuppressive drugs, initial encounter; B96.20 Unspecified Escherichia coli [E. coli] as the cause of diseases classified elsewhere; E86.0 Dehydration; N18.31 Chronic kidney disease, stage 3a; I12.9 Hypertensive chronic kidney disease with stage 1 through stage 4 chronic kidney disease, or unspecified chronic kidney disease; D64.81 Anemia due to antineoplastic chemotherapy; D63.0 Anemia in neoplastic disease; I95.1 Orthostatic hypotension; D72.819 Decreased white blood cell count, unspecified; R63.1 Polydipsia; K59.00 Constipation, unspecified; E86.1 Hypovolemia; Z66 Do not resuscitate; Z79.01 Long term (current) use of anticoagulants; Z87.891 Personal history of nicotine dependence; Z86.711 Personal history of pulmonary embolism; Z86.718 Personal history of other venous thrombosis and embolism; Z79.899 Other long term (current) drug therapy; Z92.21 Personal history of antineoplastic chemotherapy
CPT/HCPCS: 74018; 74176; 80048; 80053; 81003; 81015; 82533; 82607; 82728; 82746; 83690; 83930; 83935; 84300; 84443; 84484; 85025; 85027; 85045; 85610; 87070; 87077; 87086; 87186; 93005; 94640; 97116; 97162; 97166; 99285